=== PATIENT | male | born 1955 | race Caucasian/White ===

== ENCOUNTER 2018-01-17 07:09 | Day surgery (SDC) | payer OTHER ==
[~2018-01-17] VITALS: Ht 193 cm; Wt 108.9 kg
--- NOTE | ~2018-01-17 | OP ---
PATIENT NAME: ARLINE GOMEZ MEDICAL RECORD: [id number] :53 LOCATION:D.OPS ADMISSION DATE: SURGEON: SY CONNOR MD DATE OF OPERATION: 01/17/2018 PREOPERATIVE DIAGNOSIS: Suspicious facial lesions times 4. POSTOPERATIVE DIAGNOSIS: Suspicious facial lesions times 4. PROCEDURE: Electrodesiccation and curettage of suspicious facial lesions times 4. SURGEON: Sy Connor MD HIGH DENSITY PRESS LABORER: None. BLOOD LOSS: Minimal. ANESTHESIA: General. COMPLICATIONS: None. The risks, possible complications, and alternatives to the procedure were explained to the patient. This included the risk of regrowth of the skin lesions, possible need for wide excision in the future, possibility of infection and as the patient has been on Coumadin, the possibility of bleeding. OPERATIVE COURSE: The patient was conveyed to the operating room electively on 01/17/2018. General anesthesia was induced by anesthesia staff. The face was sterilely prepped and draped. Utilizing a curved razor blade, I was able to shave all 4 skin lesions. The right cheek skin lesion had what appeared to be some keratin debris deep within it, so that lesion may actually have been a sebaceous cyst. I then performed electrodesiccation and curettage of all the skin lesions. The right skin lesion was the deepest and required suture closure consisting of a single horizontal mattress 4-0 Vicryl Rapide. Dermabond was then applied to all the operative sites. The patient was then extubated and conveyed to post-anesthesia care unit where he was in stable condition. There is no need for him to follow up with me in the office unless he develops a complication related to this operative procedure. TRANSINT:[id number] Voice Confirmation ID: [id number] DOCUMENT ID: [id number] SY CONNOR MD at 1311 CC: [id number] DICTATION DATE: 01/17/18 1120 ALTERATION TAILOR APPRENTICE: 01/17/18 1317 [facility] 01/17/18 [place] [id number] [place] [id number]
[2018-01-17] MEDS ORDERED: PACERONE200 MG (07:40)
[2018-01-17] MEDS ORDERED: LANOXIN125 MCG PO (07:41)
[2018-01-17] MEDS ORDERED: CARTIA XT240 MG PO (07:42)
[2018-01-17] MEDS ORDERED: LASIX20 MG (07:42)
[2018-01-17] MEDS ORDERED: ZOCOR40 MG PO (07:43)
[2018-01-17] MEDS ORDERED: LEVOXYL100 MCG PO (07:43)
[2018-01-17] MEDS ORDERED: COUMADIN5 MG PO (07:44)
[2018-01-17 07:52] VITALS: BP 139/81; Ht 193 cm; Wt 108.9 kg
[2018-01-17 08:05] LABS: HEMATOCRIT 39.5 % (42.0-54.0); HEMOGLOBIN 12.9 g/dL (13.5-17.5); MCHC 32.7 g/dL (31.0-37.0); MCV 91.9 fL (80.0-100.0); MEAN PLATELET VOLUME 9.4 fL (7.4-10.4); RBC 4.3 10x6/uL (4.20-6.10); RDW 15.2 % (11.5-14.5); WBC 5.4 10x3/uL (4.8-10.8)
[2018-01-17 08:14] LABS: APTT 38.6 SECONDS (22.8-39.4); INR 2.19 (0.85-1.17); PROTIME 23.8 SECONDS (11.6-15.0)
[2018-01-17 08:28] LABS: CALC OSMOLALITY 286 mosm/kg (275-300); CALCIUM 8.8 mg/dL (8.5-10.1); CARBON DIOXIDE 29.1 mmol/L (21.0-32.0); CHLORIDE - SERUM 106 mmol/L (98-107); GLUCOSE 86 mg/dL (74-106); POTASSIUM - SERUM 3.7 mmol/L (3.5-5.1); SODIUM 144 mmol/L (136-145); UREA NITROGEN 14 mg/dL (7-18); eGFR NON AFRICAN AMERICAN 80 mL/min (90-120)
== END 2018-01-17 13:17 | disposition home or self-care (01) ==
LOC: D.OPS 07:09
PROVIDERS: Anesthesiology
DX: L98.9 Disorder of the skin and subcutaneous tissue, unspecified (principal); F17.200 Nicotine dependence, unspecified, uncomplicated; E03.9 Hypothyroidism, unspecified; Z01.812 Encounter for preprocedural laboratory examination

== ENCOUNTER 2018-12-05 15:01 | Inpatient (IN) | payer OTHER ==
[~2018-12-05] VITALS: Ht 193 cm; Wt 94.7 kg
--- NOTE | ~2018-12-05 | HEMODYNAMI ---
PATIENT:ARLINE GOMEZ MEDICAL RECORD: [id number] : 53 LOCATION:[facility] D.2126 ADMISSION DATE: 12/05/18 Generatedon:12/07/201815:48 Patient name: ARLINE GOMEZ Patient #: [id number] SSN: : 1955 Date of study: 12/07/2018 Page: Of Hemodynamic Procedure Report Patient Data Patient Demographics Procedure consent was obtained First Name: ARLINE Gender: Male Last Name: JASON : 1955 Middle Initial: E Age: 63 year(s) Patient #: [id number] Race: Unknown Additional ID: [id number] Contact details [address]: [address] [place] [address] State: [place] City: [place] Zip code: [address] Past Medical History Allergies Allergen Reaction Date Comments Reported Other allergy 12/07/2018 diltiazem Admission Admission Data Admission Date: 12/05/2018 Admission Time: 18:31 Admit Source: Other Room #: D2126 Procedure Procedure Types Cath Procedure Diagnostic Procedure LHC LHC w/Coronaries Procedure Description Procedure Date Procedure Date: 12/07/2018 Procedure Start Time: 15:37 Procedure End Time: 15:44 Procedure Staff Name Function Wili Abreu MD Performing Physician Mayank Cobian RT Monitor Jaiden Angeles RT Scrub Myrna Angela RN Nurse Procedure Data Cath Procedure Fluoroscopy Diagnostic fluoroscopy Total fluoroscopy Time: 0.9 time: 0.9 min min Diagnostic fluoroscopy Total fluoroscopy dose: dose: 169.92 mGy 169.92 mGy Contrast Material Contrast Material Type Amount (ml) Isovue 300 50 Entry Location Entry Primary Successful Side Size Upsize Upsize Entry Closure Succes sful Closure Location (Fr) 1 (Fr) 2 (Fr) Remarks Device Remarks Femoral Right 5 Fr Exoseal artery Estimated blood loss: 5 ml Diagnostic catheters Device Type Used For End Catheter Placement MULTIPACK JL 4.0 5Fr Procedure catheter MULTIPACK 3DRC 5Fr Procedure catheter MULTIPACK Pigtail 5 Fr Procedure catheter Procedure Complications No complications Procedure Medications Medication Administration Route Dosage Oxygen etCO2 Nasal cannula 2 l/min Lidocaine 2% added to field 20 Heparin Flush Bag added to field 2 bags (1000units/500ml NS) 0.9% NaCl I.V. 100 ml/hr Versed I.V. 2 mg Fentanyl I.V. 50 mcg Versed I.V. 2 mg Hemodynamics Rest Heart Rate: 71 (bpm) Pressure Samples Time Site Value (mmHg) Purpose Heart Use Rate(bpm) 15:41 LV 100/19,17 Snapshot 107 15:42 AO 120/60(89) Pullback 92 15:42 LV 99/16,19 Pullback 92 Gradients Valve Time Site 1 Site 2 Mean SEP/DFP Peak To Heart Use (mmHg) (sec/min) Peak Rate (mmHg) (bpm) Aortic 15:42 LV AO 0 92 99/16,19 120/60(89) Calculations Valve P-P Mean Valve Index Valve Source Name Gradient Area Flow (cm2) Aortic 0 0 Snapshots Pre Cath Intra NCS Post Cath Vital Signs Time Heart Resp SPO2 etCO2 NIBP (mmHg) Rhythm Pain Sedation Rate (ipm) (%) (mmHg) Status Level (bpm) 15:24:44 84 14 97 0 120/79(104) A-Fib 0 (11) 10(A) , No pain 15:28:54 58 15 96 0 114/85(102) A-Fib 0 (11) 10(A) , No pain 15:33:00 87 15 100 29.9 116/93(101) A-Fib 0 (11) 10(A) , No pain 15:37:55 71 14 100 0 107/85(99) A-Fib 0 (11) 10(A) , No pain 15:42:01 91 15 98 2.9 104/79(96) A-Fib 0 (11) 10(A) , No pain Medications Time Medication Route Dose Verified Delivered Reason Notes Eff ectiveness by by 15:31:26 Oxygen etCO2 2 Wili Norris used for Nasal l/min [facility] Angela scientific research associate cannula 15:31:32 Lidocaine 2% added 20ml Wili Rasheed for local to vial [facility] anesthetic field MD LIZ 15:31:38 Heparin Flush added 2 Wili Rasheed used for Bag to bags [facility] Abreu procedure (1000units/500ml field MD LIZ NS) 15:31:51 0.9% NaCl I.V. 100 Wili Norris used for ml/hr [facility] Angela RN procedure 15:37:08 Versed I.V. 2 mg Wili Liuie for [facility] Angela RN sedation 15:37:15 Fentanyl I.V. 50 Wili Liuie for mcg [facility] Angela RN sedation 15:41:59 Versed I.V. 2 [address] for [facility] Angela RN sedation Procedure Log Time Note 15:05:03 Informed consent obtained and on chart 15:05:07 Admit Source: Other 15:05:43 Diagnostic Cath status Elective 15:05:44 Jaiden Karthik RT(R) sent for patient. Start room use. 15:05:46 Time tracking: Regular hours (M-F 7:00 - 5:00) 15:05:49 Plan of Care:Hemodynamics will remain stable., Cardiac rhythm will remain stable., Comfort level will be maintained., Respiratory function will remain adequate., Patient/ family verbilizes understanding of procedure., Procedure tolerated without complication., Recovers from procedure without complications.. 15:07:47 H&P Date Dictated: 12/06/2018 Within 30 days and on chart.. 15:08:38 Patient allergic to Other allergydiltiazem 15:16:34 Patient received from Pre/Post Procedure Room to CCL 3 Alert and oriented. Tansferred to table in Supine position. 15:16:36 Warm blankets applied, and osmar hugger turned on for patient comfort. 15:16:36 Correct patient and procedure confirmed by team. 15:16:37 ECG and BP/O2 sat monitors applied to patient. 15:23:39 Vital chart was started 15:25:45 Baseline sample Acquired. 15:25:51 Rhythm: atrial fibrillation 15:25:52 Full Disclosure recording started 15:25:57 Pre-procedure instructions explained to patient. 15:25:57 Pre-op teaching completed and patient verbalized understanding. 15:26:03 Family unavailable. 15:26:10 Patient NPO since Breakfast. 15:26:17 Is the patient allergic to Iodine/contrast media? No. 15:27:33 Is patient on blood thinner?Yes 15:27:35 ACC The patient was administered the following blood thiners within the last 24 hours: ACCLovenox 15:31:26 Oxygen 2 l/min etCO2 Nasal cannula was administered by Myrna Angela RN; used for procedure; 15:31:32 Lidocaine 2% 20ml vial added to field was administered by Wili Abreu MD; for local anesthetic; 15:31:38 Heparin Flush Bag (1000units/500ml NS) 2 bags added to field was administered by Wili Abreu MD; used for procedure; 15:31:51 0.9% NaCl 100 ml/hr I.V. was administered by Myrna Angela RN; used for procedure; 15:34:49 Patient diabetic? No. 15:34:56 Previous problem with sedation/anesthesia? Unknown ? 15:35:03 Snore? Yes 15:35:04 Sleep apnea? No 15:35:06 Deviated septum? No 15:35:24 Opens mouth fully? Yes 15:35:25 Sticks out tongue? Yes 15:35:27 Airway obstruction? No ? 15:35:29 Dentures? No ? 15:35:31 Pre procedure: right dorsailis pedis pulse 1+ Palpable, but thready & weak; easily obliterated 15:35:35 Patient pain scale 0/10 ?. 15:35:40 IV patent on arrival in left forearm with 0.9% NaCl at [facility]. 15:35:43 Lab results completed and on chart. 15:35:46 Right groin area was prepped with chlora-prep and draped in sterile fashion 15:35:47 Alarms reviewed by R. N. 15:35:48 Sharps counted by scrub and verified by R.N. 15:35:49 Use device set Femoral Dx 15:35:50 ACIST Syringe (71878) opened to sterile field. 15:35:51 Bag Decanter (2002) opened to sterile field. 15:35:51 Medline Cath Pack ([id number]) opened to sterile field. 15:35:52 ACIST Hand Control (84271) opened to sterile field. 15:35:52 ACIST Manifold (44550) opened to sterile field. 15:35:53 Tegaderm 4 x 4 (1626W) opened to sterile field. 15:35:54 SHEATH 5FR Shattuck (IYL309) opened to sterile field. 15:35:55 DIAGNOSTIC WIRE .035 260cm J wire (205057) opened to sterile field. 15:35:56 DIAGNOSTIC Multipack 5Fr catheter set (CS5294) opened to sterile field. 15:36:00 Physician arrived 15:36:01 --------ALL STOP TIME OUT------ 15:36:01 Final Timeout: patient, procedure, and site verified with staff and physician. All members of the team are in agreement. 15:36:02 Right groin site verified by team. 15:36:05 Maximum allowable Isovue 300 dose 300ml. Physician notified. (300ml for normal creatinines. For patients with creatinine of 1.7 or higher multiply weight(kg) x 5 divided by creatinine.) 15:36:09 Fire Safety Assessment: A--An alcohol-based skin anteseptic being used preoperatively., C--Open oxygen or nitrous oxide is being used., D--An ESU, laser, or fiber-optic light is being used. 15:36:11 Physical assessment completed. ASA score P 2 - A patient with mild systemic disease as per Wili Abreu MD. 15:36:14 Sedation plan: IV Moderate Sedation Medication:Versed, Fentanyl 15:36:18 Zero performed for pressure channel P1 15:36:20 Zero performed for pressure channel P1 15:36:29 Zero performed for pressure channel P1 15:37:08 Versed 2 mg I.V. was administered by Myrna Angela RN; for sedation; 15:37:15 Fentanyl 50 mcg I.V. was administered by Myrna Angela RN; for sedation; 15:37:43 Procedure started. 15:37:46 Local anesthetic to right femoral artery with Lidocaine 2% by Wili Abreu MD.INITIAL ACCESS ONLY 15:37:53 A 5 Fr sheath was inserted into the Right Femoral artery 15:37:59 A MULTIPACK JL 4.0 5Fr catheter was advanced over the wire and used for Procedure. 15:38:43 LCA angiography performed. 15:39:30 Catheter exchanged over wire. 15:39:34 A MULTIPACK 3DRC 5Fr catheter was advanced over the wire and used for Procedure. 15:39:40 Timer 1 started at 3:34 PM, stopped at 3:39 PM, duration 00:04:47 sec. 15:40:16 RCA angiography performed. 15:40:24 Catheter exchanged over wire. 15:40:28 A MULTIPACK Pigtail 5 Fr catheter was advanced over the wire and used for Procedure. 15:40:40 EXOSEAL 5Fr (EX500) opened to sterile field. 15:41:37 LV gram done using ELLIS 15:41:39 Injector settings: Ml/sec: 10, Volume: 20, 15:41:41 LV hemodynamics recorded. 15:41:51 EF : 20 % 15:41:56 Catheter removed. 15:41:59 Versed 2 mg I.V. was administered by Myrna Angela RN; for sedation; 15:42:31 Sheath removed intact; hemostasis achieved with Exoseal to the Right Femoral artery. 15:42:32 Procedure ended.(Physican Out) 15:42:48 Fluoroscopy time 00.90 minutes. 15:42:55 Fluoroscopy dose: 169.92 mGy 15:42:55 Flurop Dose total: 169.92 15:42:58 Contrast amount:Isovue 300 50ml. 15:42:59 Sharps counted by scrub and verified by R.N. 15:43:02 Insertion/operative site no bleeding no hematoma. 15:43:05 Post-op/insertion site Right Femoral artery dressed using a 4 x 4 and Tegaderm. 15:43:08 Post right femoral artery:stable, soft, clean and dry 15:43:10 Post Procedure Pulses reassessed and unchanged 15:43:12 Post procedure rhythm: unchanged. 15:43:15 Estimated blood loss: 5 ml 15:43:16 Post procedure instruction explained to patient.Patient verbalizes understanding. 15:43:16 Patient needs reinforcement of post procedure teaching. 15:43:56 Procedure and supply charges have been captured, reviewed, submitted and are correct. 15:43:58 Procedure Complication : No complications 15:44:00 Vital chart was stopped 15:44:00 See physician's report for complete and final results. 15:44:02 Report given to PCU. 15:44:05 Patient transfered to PCU with Stretcher. 15:44:07 Procedure ended. 15:44:07 Full Disclosure recording stopped 15:44:09 End room use (Document Last) Device Usage Item Name Manufacture Quantity Catalog Hospital Part Current Minimal L ot# / Number Charge Number Stock Stock Serial# Code [place] [address] 07845 442579 222885 788970 20 Syringe Medical (77332) Systems Inc Bag Microtek 1 2001S 365078 82171 563109 5 Decanter Medical Inc. (2001S) Medline Medline 1 [id number] 227061 36388 773212 5 Cath Pack ([id number]) ACIST Hand Acist 1 87632 078523 640713 779177 5 Control Medical (25476) Systems Inc ACIST Acist 1 55443 436346 320611 813873 5 Manifold Medical (46784) Systems Inc Tegaderm 4 3M 1 1626W 850655 347845 902206 5 x 4 (1626W) SHEATH 5FR Terumo 1 [id number] 763825 807276 015126 5 Shattuck (CXR242) DIAGNOSTIC [facility] 1 934586 011615 281332 295338 30 WIRE .035 260cm J wire (384212) DIAGNOSTIC Cardinal 1 WB4551 366370 91853 476453 30 Multipack Health 5Fr catheter set (ML8354) MULTIPACK Cardinal 1 259793 5 JL 4.0 5Fr Health catheter MULTIPACK Cardinal 1 662065 5 3DRC 5Fr Health catheter MULTIPACK Cardinal 1 534502 5 Pigtail 5 Health Fr catheter EXOSEAL 5Fr Cardinal 1 EX500 660410 023244 586827 10 (EX500) Health Signature Audit Lutz Stage Time Signature Unsigned Intra-Procedure 12/07/2018 Mayank Cobian 3:48:15 PM RT(R) Signatures Monitor : Mayank Cobian RT Signature : Date : Time : [facility] [address] [place] [address]
[~2018-12-05 15:01] MED LIST: CARTIA XT240 MG PO; COUMADIN5 MG PO; LANOXIN125 MCG PO; LASIX20 MG PO; LEVOXYL100 MCG PO; PACERONE200 MG; ZOCOR40 MG PO
[2018-12-05 15:41] LABS: BASOPHILS 0.1 % (0-2); EOSINOPHILS 0.6 % (0-7); HEMATOCRIT 42.2 % (42.0-54.0); HEMOGLOBIN 13.9 g/dL (13.5-17.5); IMMATURE GRANULOCYTES 0.1 % (0-5); LYMPHOCYTES 9.7 % (15-50); MCH 30.2 pg (26.0-34.0); MCHC 32.9 g/dL (31.0-37.0); MCV 91.5 fL (80.0-100.0); MONOCYTES 5.9 % (2-11); NEUTROPHILS 83.6 % (40-80); PLATELET COUNT 216 10x3/uL (130-400); RBC 4.61 10x6/uL (4.20-6.10); RDW 15.2 % (11.5-14.5); WBC 7.9 10x3/uL (4.8-10.8)
[2018-12-05 15:58] LABS: ALBUMIN 2.7 g/dL (3.4-5.0); ALKALINE PHOSPHATASE 150 U/L (46-116); ALT (SGPT) 60 U/L (10-68); APTT 33.7 SECONDS (22.8-39.4); BILIRUBIN - TOTAL 2.54 mg/dL (0.2-1.3); CALC OSMOLALITY 281 mosm/kg (275-300); CALCIUM 7.7 mg/dL (8.5-10.1); CARBON DIOXIDE 20.2 mmol/L (21.0-32.0); CHLORIDE - SERUM 105 mmol/L (98-107); GLUCOSE 118 mg/dL (74-106); INR 1.54 (0.85-1.17); POTASSIUM - SERUM 3.7 mmol/L (3.5-5.1); PROTEIN - SERUM 6.5 g/dL (6.4-8.2); PROTIME 17.9 SECONDS (11.6-15.0); SODIUM 138 mmol/L (136-145); UREA NITROGEN 26 mg/dL (7-18); eGFR NON AFRICAN AMERICAN 80 mL/min (90-120)
[2018-12-05 16:09] LABS: CKMB 1.9 U/L (0.0-3.6); CREATINE KINASE 46 UL (21-232); MAGNESIUM - SERUM 2.2 mg/dL (1.8-2.4); TROPONIN-I 0.023 ng/mL (0.000-0.060)
--- NOTE | 2018-12-05 17:00 | NUR ---
PT GIVEN CARDIZEM ORDERED IVP, FOLLOWING ADMINISTRATION, RED PATCHES APPEARED ON THE LUE FROM THE LEFT HAND UP TO THE LEFT AC. PROVIDER Jany SIERRA AT THE BEDSIDE TO ASSESS PT. PT REPORTS BURNING SENSATION TO THE LUE. NURSE INSTRUCTED TO NOT ADMINISTER ORDERED CARDIZEM DRIP. EDP DR. KRAUS NOTIFIED. CARDIZEM ADDED TO PT'S ALLERGY LIST AT THIS TIME D/T REACTION. PRIOR TO ADMINISTRATION THIS NURSE VERIFIED THAT PT HAD NO KNOWN DRUG ALLERGIES.
[2018-12-05 17:04] VITALS: BP 110/71
--- NOTE | 2018-12-05 18:05 | NUR ---
SPOKE WITH BEATA IN PHARMACY TO REQUEST ORDERED MEDICATIONS, WILL ADMINISTER UPON ARRIVAL TO THE ED.
--- NOTE | 2018-12-05 18:47 | NUR ---
NOTIFIED BY LAB OF [facility] OF 1.82. DR. KRAUS NOTIFIED.
[2018-12-05 19:01] VITALS: BP 118/74
--- NOTE | 2018-12-05 19:04 | NUR ---
HAND-OFF REPORT GIVEN TO EUGENE SCHREIBER
[2018-12-05 20:00] VITALS: BP 111/56
--- NOTE | 2018-12-05 20:13 | NUR ---
REPROT GIVEN TO EUGENE WESLEY. PT GOING FOR VQ SCAN AT THIS TIME AND BEING TRANSFERED TO ROOM WHEN PROCEDURE IS COMPLETE. PT IN STABLE CONDITON AT THIS TIME
[2018-12-05 21:59] LABS: CKMB 3.3 U/L (0.0-3.6); CREATINE KINASE 121 UL (21-232); TROPONIN-I 0.018 ng/mL (0.000-0.060)
[2018-12-05 23:04] VITALS: BP 91/48; BMI 26.1
[2018-12-06 00:30] VITALS: BP 92/43
--- NOTE | 2018-12-06 02:24 | NUR ---
PLACED ON TELEMETRY PER ORDERS, CURRENTLY IN CONTROLLED AFIB IN THE 60S WITH SOME OCCASIONAL PVCS. PATIENT RESTING WITH BLANKET UP OVER HEAD, RESP EVEN AND UNLABORED. GUARD AT BEDSIDE, NO COMPLAINTS AT THIS TIME.
[2018-12-06 04:52] LABS: BASOPHILS 0 % (0-2); EOSINOPHILS 0 % (0-7); HEMATOCRIT 39.3 % (42.0-54.0); HEMOGLOBIN 12.6 g/dL (13.5-17.5); IMMATURE GRANULOCYTES 0.3 % (0-5); LYMPHOCYTES 6.5 % (15-50); MCH 29.6 pg (26.0-34.0); MCHC 32.1 g/dL (31.0-37.0); MCV 92.3 fL (80.0-100.0); MEAN PLATELET VOLUME 10.9 fL (7.4-10.4); MONOCYTES 0.8 % (2-11); NEUTROPHILS 92.4 % (40-80); PLATELET COUNT 194 10x3/uL (130-400); RBC 4.26 10x6/uL (4.20-6.10); RDW 14.6 % (11.5-14.5); WBC 6.6 10x3/uL (4.8-10.8)
[2018-12-06 05:30] VITALS: BP 106/45
[2018-12-06 05:36] LABS: ALBUMIN 2.3 g/dL (3.4-5.0); ALKALINE PHOSPHATASE 127 U/L (46-116); ALT (SGPT) 51 U/L (10-68); BILIRUBIN - TOTAL 2.16 mg/dL (0.2-1.3); CALC OSMOLALITY 285 mosm/kg (275-300); CALCIUM 7.8 mg/dL (8.5-10.1); CARBON DIOXIDE 23.9 mmol/L (21.0-32.0); CHLORIDE - SERUM 107 mmol/L (98-107); CKMB 1.2 U/L (0.0-3.6); CREATINE KINASE 33 UL (21-232); GLUCOSE 157 mg/dL (74-106); MAGNESIUM - SERUM 2.2 mg/dL (1.8-2.4); POTASSIUM - SERUM 4.1 mmol/L (3.5-5.1); PROTEIN - SERUM 5.8 g/dL (6.4-8.2); SODIUM 140 mmol/L (136-145); TROPONIN-I 0.024 ng/mL (0.000-0.060); UREA NITROGEN 24 mg/dL (7-18); eGFR NON AFRICAN AMERICAN 80 mL/min (90-120)
[2018-12-06 08:30] VITALS: BP 96/52
[2018-12-06] MEDS ORDERED: KEPPRA500 MG PO (10:43)
[2018-12-06] MEDS ORDERED: ELIQUIS5 MG PO (10:43)
[2018-12-06] MEDS ORDERED: BAYER CHEWABLE81 MG PO (10:44)
[2018-12-06] MEDS ORDERED: LISINOPRIL10 MG PO (10:44)
[2018-12-06] MEDS ORDERED: COLACE100 MG PO (10:45)
[2018-12-06 11:43] LABS: CKMB 0.8 U/L (0.0-3.6); CREATINE KINASE 28 UL (21-232); TROPONIN-I 0.017 ng/mL (0.000-0.060)
--- NOTE | 2018-12-06 11:45 | NUR ---
I have reviewed this patient and I concur with the Shift Assessment completed by the Licensed Practical Nurse today this shift.
[2018-12-06 11:46] VITALS: BP 94/57
[2018-12-06 13:30] VITALS: Ht 193 cm; Wt 94.7 kg
[2018-12-06 15:47] VITALS: BP 91/53
--- NOTE | 2018-12-06 18:12 | NUR ---
WITHOUT CHANGES OR DISTRESS NOTED AT THIS TIME. DENIES NEEDS.
--- NOTE | 2018-12-06 19:33 | NUR ---
PT RESTING IN BED. LAYING ON RIGHT SIDE. RIGHT SIDE MOSTLY FLACCID. PT HAS SCANT MOVEMENT. PT HAS SLURRED SPEECH FROM HISTORY OF CVA. GUARD AT BEDSIDE PT IS INMATE. PT IS AAO, WILL TURN SELF IN BED. NO S/S OF DISTRESS. BEDLOW AND CALL LIGHT IN REACH. NAME AND DATE PLACED ON BOARD. PT WILL CALL FOR ASSIST WHEN NEEDED. WILL CPOC
[2018-12-06 20:00] VITALS: BP 115/57
--- NOTE | 2018-12-06 21:43 | NUR ---
HEART CATH AND BLOOD CONSENTS SIGNED PT VERBALIZED UNDERSTANDING. DENIES ANY QUESTIONS OR NEEDS. VERBALLIZED UNDERSTANDING OF NPO AFTER MIDNIGHT. PT WILL CALL FOR ASSIST WHEN NEEDED. WILL CPOC
[2018-12-07] VITALS (12 sets, daily range): BP systolic 92–127; BP diastolic 54–91
[2018-12-07 05:44] LABS: BASOPHILS 0.1 % (0-2); EOSINOPHILS 0.1 % (0-7); HEMATOCRIT 39.6 % (42.0-54.0); HEMOGLOBIN 12.8 g/dL (13.5-17.5); IMMATURE GRANULOCYTES 0.1 % (0-5); LYMPHOCYTES 12.8 % (15-50); MCH 29.8 pg (26.0-34.0); MCHC 32.3 g/dL (31.0-37.0); MCV 92.1 fL (80.0-100.0); MEAN PLATELET VOLUME 10.5 fL (7.4-10.4); MONOCYTES 6.3 % (2-11); NEUTROPHILS 80.6 % (40-80); PLATELET COUNT 198 10x3/uL (130-400)
[2018-12-07 05:50] LABS: WBC 9.2 10x3/uL (4.8-10.8)
[2018-12-07 06:12] LABS: ALBUMIN 2.3 g/dL (3.4-5.0); ANION GAP 12.6 mmol/L (8-16); BILIRUBIN - TOTAL 1.55 mg/dL (0.2-1.3); CALCIUM 7.7 mg/dL (8.5-10.1); CREATININE - SERUM 1.1 mg/dL (0.6-1.3); MAGNESIUM - SERUM 2.2 mg/dL (1.8-2.4); POTASSIUM - SERUM 3.6 mmol/L (3.5-5.1); PROTEIN - SERUM 5.8 g/dL (6.4-8.2)
--- NOTE | 2018-12-07 06:16 | NUR ---
MORNING SYNTHROID GIVEN WITH SIPS OF WATER. PT HAS BEEN NPO SINCE MIDNIGHT. PT HAS NO S/S OF DISTRESS. WILL CPOC
--- NOTE | 2018-12-07 07:45 | NUR ---
PT SITTING UP IN BED. ALERT AND ORIENTED. GUARD AT BEDSIDE. STATED TO PT HIS HEART CATH IS GOING TO BE SOMETIME AFTER 1400. HE VERBALIZED UNDERSTANDING. PT HAS NO FURTHER NEEDS AT THIS TIME. BED LOW. CL IN REACH.
--- NOTE | 2018-12-07 09:49 | NUR ---
I have reviewed this patient and I concur with the Shift Assessment completed by the Licensed Practical Nurse today this shift.
--- NOTE | 2018-12-07 13:38 | EC ---
PATIENT:ARLINE GOMEZ DATE OF SERVICE: 12/05/18 SEX: M MEDICAL RECORD: [id number] DATE OF : 53 LOCATION:D.M2 D.212 AGE OF PATIENT: 63 ADMISSION DATE: 12/05/18 REFERRING PHYSICIAN: INTERPRETING PHYSICIAN: TEMO CRUZ MD ECHOCARDIOGRAM REPORT ECHO CHARGES 4 ECHO COMPLETE Date: 12/06/18 CLINICAL DIAGNOSIS: AFIB ECHOCARDIOGRAPHIC MEASUREMENTS (adult normal given) AC root (d.<3.7cm) 3.0 cm LV Septum d (<1.2 cm> 1.1 cm Valve Excursion 1.9 cm LV Septum (systole) 1.6 cm Left Atria (s.<4.0cm> 5.0 cm LVPW d(<1.2cm) 1.4 cm RV (d.<2.3cm) 2.9 cm LVPW (sytole) 1.9 cm LV diastole(<5.6CM) 5.9 cm MV E-F(>70mm/sec) cm LV systole 4.6 cm LVOT Diameter 2.2 cm MV exc.(>10mm) cm Est.ejection fraction (50-75%) % DOPPLER: LVIT cm/sec A 0 cm/sec E 112 cm/sec LA cm/sec RVSP 31.3 mmHg LVOT 102 cm/sec AOP1/2T m/s Asc. Ao 178 cm/sec RVOT 60 cm/sec RA cm/sec PA 93 cm/sec AV Gradient Peak 12.7 mmHg AV Mean 5.7 mmHg AV Area 2.0 cm MV Gradient Peak 7.2 mmHg MV Mean 3.4 mmHg MV Area cm COMMENTS: Sports Announcer: Gu[facility] Betting Clerk: 1 Dr. Villa TAPE# PACS Pericardial Effusion N DATE OF SERVICE: Adequate 2D, color flow, spectral Doppler, and M-mode. LVH is present. LV internal dimension is mildly dilated at 5.9 cm. LV is mildly globally hypokinetic with reduced EF. Estimated EF is lower limits of normal, mildly reduced. Estimated EF 40% to 45%. Aortic valve sclerosis without stenosis by Doppler interrogation. Left atrium is dilated at 5.0 cm. Mitral valve shows no prolapse. Nybm-rn-nnycelfc MR. Right-sided chambers are grossly normal. Mild TR. ECHOCARDIOGRAM REPORT [id number] ARLINE GOMEZ TRANSINT:[id number] Voice Confirmation ID: [id number] DOCUMENT ID: [id number] TEMO CRUZ MD at 1338 CC: [id number] DICTATION DATE: 12/06/18 1241 BACK TACKER: 12/07/18 0357 ADM IN [facility] [address] [place] [address]
--- NOTE | 2018-12-07 15:00 | NUR ---
JESSICA MONTERO'Amna FOR MELT DOWN FURNACE OPERATOR.
--- NOTE | 2018-12-07 15:12 | NUR ---
PT TAKEN FOR ROBOTICS MECHANIC VIA BED ACCOMPANIED BY GUARD.
--- NOTE | 2018-12-07 16:00 | NUR ---
SPOKE WITH MAKENNA FROM EXPANSION JOINT FINISHER SHE STATES LEFT HEART CATH BY DR. WARREN NO INTERVENTION FOR THE ARTERIES BUT PT DOES HAVE EJECTION FRACTION OF 15%-20%. SHE STATES SHE GAVE 4 OF VERSED AND 100 OF FENTANYL. 5 FAROESE EXOCIL TO THE RIGHT GROIN.
--- NOTE | 2018-12-07 16:05 | NUR ---
PT RETURNED FROM BANK CASHIER. EYES CLOSED. CHEST RISING AND FALLING. O2 AT 2L VIA NC. PP CHECKED. VS STABLE. RIGHT GROIN SOFT SHOWS NO S/S OF HEMATOMA DRESSING C/D/I. GUARD AT BEDSIDE. NS INFUSING THROUGH LEFT HAND IV. WILL CONTINUE TO MONITOR. BED LOW. CL IN REACH.
--- NOTE | 2018-12-07 17:12 | NUR ---
PT IS RUNNING 101 UNCONTROLLED AFIB.
[2018-12-07] MEDS ORDERED: COREG 3.1253.125 MG PO (17:16)
--- NOTE | 2018-12-07 19:26 | NUR ---
PT ASLEEP. AROUSES TO VERBAL STIMULI. PT IS AAO, RIGHT SIDE WEAKNESS/FACE DROP FROM HISTORY OF CVA. PT RIGHT GROIN DRSG CDI. NO BLEEDING OR HEMATOMA. GUARD AT BEDSIDE, PT IS AN INMATE. PLACED NAME AND DATE ON BOARD. BEDLOW AND CALL LIGHT IN REACH. WILL CPOC
[2018-12-08] VITALS: BP 98/58
--- NOTE | 2018-12-08 00:47 | NUR ---
PT IS ASLEEP. GUARD AT BEDSIDE. PT RESP EVEN AND UNLABORED. NO S/S OF DISTRESS. BEDLOW AND CALL LIGHT IN REACH. RIGHT GROIN DRSG CDI. PULSES +2 PT WILL CALL FOR ASSIST WHEN NEEDED. WILL CPOC
--- NOTE | 2018-12-08 02:16 | NUR ---
PT HAD A RUN OF 6 VTACH. PLACED STRIP INTO CHART. PT IS ASLEEP. AROUSES TO VERBAL STIMULI. DENIES ANY NEEDS. PT IS NOW 61 CAF.
[2018-12-08 04:00] VITALS: BP 99/60
[2018-12-08 05:48] LABS: BASOPHILS 0.1 % (0-2); EOSINOPHILS 0.9 % (0-7); HEMATOCRIT 44.9 % (42.0-54.0); HEMOGLOBIN 14.5 g/dL (13.5-17.5); IMMATURE GRANULOCYTES 0.1 % (0-5); LYMPHOCYTES 14.3 % (15-50); MCH 30.1 pg (26.0-34.0); MCHC 32.3 g/dL (31.0-37.0); MCV 93.3 fL (80.0-100.0); MEAN PLATELET VOLUME 10.8 fL (7.4-10.4); MONOCYTES 8.4 % (2-11); NEUTROPHILS 76.2 % (40-80); PLATELET COUNT 205 10x3/uL (130-400); RBC 4.81 10x6/uL (4.20-6.10); RDW 15.1 % (11.5-14.5); WBC 6.9 10x3/uL (4.8-10.8)
[2018-12-08 06:07] LABS: ALBUMIN 2.5 g/dL (3.4-5.0); ANION GAP 10.2 mmol/L (8-16); BILIRUBIN - TOTAL 2.02 mg/dL (0.2-1.3); CALCIUM 7.8 mg/dL (8.5-10.1); CARBON DIOXIDE 28.2 mmol/L (21.0-32.0); CREATININE - SERUM 1.1 mg/dL (0.6-1.3); MAGNESIUM - SERUM 2.3 mg/dL (1.8-2.4); POTASSIUM - SERUM 3.4 mmol/L (3.5-5.1); PROTEIN - SERUM 6.1 g/dL (6.4-8.2)
[2018-12-08 09:24] VITALS: BP 131/71
--- NOTE | 2018-12-08 09:31 | MORECARE ---
CASE MANAGEMENT DISCHARGE SUMMARY PATIENT: ARLINE GOMEZ E UNIT: [id number] ADM DATE: 12/05/18 AGE: 63 : 53 SEX: M ROOM/BED: D.2126 AUTHOR: MAGALY PEREZ PHYSICIAN: REFERRING PHYSICIAN: ISABELL KENDRICK MD DATE OF SERVICE: 12/08/18 Discharge Plan Patient Name: ARLINE [facility]Z [facility] 1955 Planned Disposition: Other Type of Facility Anticipated Discharge Date: 12/08/18 Discharge Date: Expected LOS: 3 Initial Reviewer: [email or web address] Initial Review Date: 12/05/2018 Generated: 12/08/18 10:31 am DCPIA - Discharge Planning Initial Assessment Updated by [email or web address]: Gale Galeas on 12/08/18 9:30 am * Is the patient Alert and Oriented? Yes * How many steps to enter\exit or inside your home? * PCP [facility] * [facility] * Preadmission Environment Other * Other Environment [facility] * ADLs Independent * Equipment None * Other Equipment [facility] ANY DME NEEDED * List name and contact numbers for known caregivers / representatives who currently or will assist patient after discharge: [place] [facility] * Verbal permission to speak to the caregivers and representatives has been obtained from the patient. N/A * Community resources currently utilized None * Additional services required to return to the preadmission environment? No * Can the patient safely return to the preadmission environment? Yes * Has this patient been hospitalized within the prior 30 days at any hospital? No Patient Name: ARLINE GOMEZ Page [id number] at 0931 All edits/amendments must be made on the electronic document DICTATION DATE: 12/08/18929 FOOD TRAY ASSEMBLER: TALYA 12/08/18929 RPT#: [id number] DC DATE: STATUS: ADM IN [facility] [address] [place] [address] END OF REPORT
--- NOTE | 2018-12-08 09:39 | MORECARE ---
CASE MANAGEMENT DISCHARGE SUMMARY PATIENT: ARLINE GOMEZ UNIT: [id number] ADM DATE: 12/05/18 AGE: 63 : 54 SEX: M ROOM/BED: D.2126 AUTHOR: MAGALY PEREZ PHYSICIAN: REFERRING PHYSICIAN: ISABELL KENDRICK MD DATE OF SERVICE: 12/08/18 Discharge Plan Patient Name: ARLINE GOMEZ Facility: [facility]:[place] : 1955 Planned Disposition: Other Type of Facility Anticipated Discharge Date: 12/08/18 Discharge Date: Expected LOS: 3 Initial Reviewer: [email or web address] Initial Review Date: 12/05/2018 Generated: 12/08/18 10:38 am Comments DCP- Discharge Planning Updated by [email or web address]: Gale Galeas on 12/08/18 8:[address] Patient Name: ARLINE GOMEZ Admission Status: ER Accout number: [id number] Admission Date: 12-05-2018 : 1955 Admission Diagnosis:UNSPECIFIED ATRIAL FIBRILLATION Attending: MIREILLE, Current LOS: 3 Anticipated DC Date: 12-08-2018 Planned Disposition: Other Type of Facility Primary Insurance: [place] DEPT OF CORRECTIONS Discharge Planning Comments: CM MET IN ROOM WITH PATIENT AND GUARDS AT BEDSIDE. THE PLAN IS FOR THE PATIENT TO RETURN TO THE [facility] AND THERE ARE NO ADDITIONAL NEEDS FOR DISCHARGE. AUSTIN IRWIN APN IS TO CALL DR DELACRUZ AND DO THE DOC TO DOC AND THEN HE WILL BE CLEARED TO LEAVE. THE GUARDS ARE TO ARRANGE TRANSPORT. Associate Professor Of Surgery: Gale Galeas RN DCPIA - Discharge Planning Initial Assessment Updated by [email or web address]: Gale Galeas on 12/08/18 9:30 am * Is the patient Alert and Oriented? Yes * How many steps to enter\exit or inside your home? * PCP [facility] MD * Pharmacy [facility] * Preadmission Environment Other * Other Environment [facility] * ADLs Independent * Equipment None * Other Equipment [facility] ANY DME NEEDED * List name and contact numbers for known caregivers / representatives who currently or will assist patient after discharge: [place] DEPARTMENT OF CORRECTIONS * Verbal permission to speak to the caregivers and representatives has been obtained from the patient. N/A * Community resources currently utilized None * Additional services required to return to the preadmission environment? No * Can the patient safely return to the preadmission environment? Yes * Has this patient been hospitalized within the prior 30 days at any hospital? No Last DP export: 12/08/18 8:31 am Patient Name: ARLINE GOMEZ Page [phone] at 0939 All edits/amendments must be made on the electronic document DICTATION DATE: 12/08/18937 CHOIR MEMBER: TALYA 12/08/18937 RPT#: [id number] DC DATE: STATUS: ADM IN [facility] [address] [place] [address] END OF REPORT
--- NOTE | 2018-12-08 13:14 | NUR ---
D/C INSTRUCTIONS GIVEN TO PT, [facility] [place]. IV REMOVED, PT TAKEN TO CAR VIA WHEELCHAIR.
--- NOTE | 2018-12-09 09:58 | OP ---
PATIENT NAME: ARLINE GOMEZ MEDICAL RECORD: [id number] :53 LOCATION:D.M2 D.2126 ADMISSION DATE:12/05/18 SURGEON: TEMO CRUZ MD DATE OF OPERATION: 12/07/2018 PROCEDURE: Left heart catheterization, selective coronary angiography, right femoral artery approach. CATHETERS: A 5-Finnish sheath, 5/4 left and right Karina, 5/4 pig. The procedure was well tolerated. The patient returned to trujillo, sheath removed. ExoSeal device placed. FINDINGS: Left ventriculography in 30-degree ELLIS view shows severe global hypokinesis with reduced EF, EF 15% to 20%, LVEDP 15 mmHg. CORONARY ANATOMY: LEFT MAIN: Left main is free of disease. LAD: Has luminal irregularities with no significant flow obstructive. CIRCUMFLEX: Again, luminal irregularities, no significant flow obstructive. RIGHT CORONARY ARTERY: Right dominant system. Right coronary shows no flow obstructive stenosis. IMPRESSION: Nonischemic cardiomyopathy, questionable tachy mediated, rates are better. We will continue Vest. We would need outpatient echo to see if left ventricle recovers with rates better controlled. If not, he would be a candidate for device therapy, although given acute islam would not benefit from left ventricular pacing. TRANSINT:[id number] Voice Confirmation ID: [id number] DOCUMENT ID: [id number] TEMO CRUZ MD at 0958 CC: [id number] DICTATION DATE: 12/07/18 1557 DRUM BARKER OPERATOR: 12/07/18 2245 DIS IN 12/08/18 [place] [id number] [place] [id number]
--- NOTE | 2018-12-11 09:40 | MORECARE ---
CASE MANAGEMENT DISCHARGE SUMMARY PATIENT: ARLINE GOMEZ UNIT: [id number] ADM DATE: 12/05/18 AGE: 63 : 54 SEX: M ROOM/BED: D.2126 AUTHOR: MAGALY PEREZ PHYSICIAN: REFERRING PHYSICIAN: ISABELL KENDRICK MD DATE OF SERVICE: 12/11/18 Discharge Plan Patient Name: ARLINE GOMEZ Facility: [facility]:[place] : 1955 Planned Disposition: Other Type of Facility Anticipated Discharge Date: 12/08/18 Discharge Date: 12/08/2018 Expected LOS: 3 Initial Reviewer: [email or web address] Initial Review Date: 12/05/2018 Generated: 12/11/18 10:40 am Comments DCP- Discharge Planning Updated by [email or web address]: Gale Galeas on 12/08/18 8:[address] Patient Name: ARLINE GOMEZ Admission Status: ER Accout number: [id number] Admission Date: 12-05-2018 : 1955 Admission Diagnosis:UNSPECIFIED ATRIAL FIBRILLATION Attending: MIREILLE, Current LOS: 3 Anticipated DC Date: 12-08-2018 Planned Disposition: Other Type of Facility Primary Insurance: [place] DEPT OF CORRECTIONS Discharge Planning Comments: CM MET IN ROOM WITH PATIENT AND GUARDS AT BEDSIDE. THE PLAN IS FOR THE PATIENT TO RETURN TO THE [facility] AND THERE ARE NO ADDITIONAL NEEDS FOR DISCHARGE. AUSTIN IRWIN APN IS TO CALL DR DELACRUZ AND DO THE DOC TO DOC AND THEN HE WILL BE CLEARED TO LEAVE. THE GUARDS ARE TO ARRANGE TRANSPORT. Jewel Waxer: Gale Galeas RN DCPIA - Discharge Planning Initial Assessment Updated by [email or web address]: Gale Galeas on 12/08/18 9:30 am * Is the patient Alert and Oriented? Yes * How many steps to enter\exit or inside your home? * PCP [facility] MD * [facility] * Preadmission Environment Other * Other Environment [facility] * ADLs Independent * Equipment None * Other Equipment [facility] ANY DME NEEDED * List name and contact numbers for known caregivers / representatives who currently or will assist patient after discharge: [place] DEPARTMENT OF CORRECTIONS * Verbal permission to speak to the caregivers and representatives has been obtained from the patient. N/A * Community resources currently utilized None * Additional services required to return to the preadmission environment? No * Can the patient safely return to the preadmission environment? Yes * Has this patient been hospitalized within the prior 30 days at any hospital? No Last DP export: 12/08/18 8:38 am Patient Name: ARLINE GOMEZ Page [id number] at 0940 All edits/amendments must be made on the electronic document DICTATION DATE: 12/11/18939 US MARKETING DIRECTOR: TALYA 12/11/18939 RPT#: [id number] DC DATE:12/08/18 STATUS: DIS IN [facility] [address] [place] [address] END OF REPORT
== END 2018-12-08 13:16 | DRG 287 ==
LOC: D.ER 15:01 → D.M2 18:31 → D.EDHOLD 18:31 → D.M2 18:57
PROVIDERS: Family Medicine; Internal Medicine Interventional Cardiology; ADMIT Family Medicine; ATTEND Family Medicine
PROC: B2151ZZ Fluoroscopy of Left Heart using Low Osmolar Contrast (ICD-10-PCS; 2018-12-07)
PROC: 4A023N7 Measurement of Cardiac Sampling and Pressure, Left Heart, Percutaneous Approach (ICD-10-PCS; 2018-12-07)
PROC: B2111ZZ Fluoroscopy of Multiple Coronary Arteries using Low Osmolar Contrast (ICD-10-PCS; principal; 2018-12-07 15:05)
DX: I48.91 Unspecified atrial fibrillation (principal); I69.951 Hemiplegia and hemiparesis following unspecified cerebrovascular disease affecting right dominant side; I11.0 Hypertensive heart disease with heart failure; Z79.01 Long term (current) use of anticoagulants; E03.9 Hypothyroidism, unspecified; G40.909 Epilepsy, unspecified, not intractable, without status epilepticus; I50.9 Heart failure, unspecified; E78.5 Hyperlipidemia, unspecified; I42.9 Cardiomyopathy, unspecified

== ENCOUNTER 2019-07-11 05:08 | Inpatient (IN) | payer MEDICAID ==
[~2019-07-11] VITALS: Ht 193 cm; Wt 91.2 kg
[2019-07-11] VITALS (56 sets, daily range): BP systolic 72–178; BP diastolic 42–125; Ht 193 cm; Wt 91.2 kg
[~2019-07-11 05:08] MED LIST changes: +BAYER CHEWABLE81 MG PO; +COLACE100 MG PO; +COREG 3.1253.125 MG PO; +ELIQUIS5 MG PO; +KEPPRA500 MG PO; +LISINOPRIL10 MG PO
[2019-07-11] MEDS ORDERED: MULTI-DAY VITAM1 TAB PO (05:10)
[2019-07-11] MEDS ORDERED: PACERONE200 MG PO (05:11)
[2019-07-11] MEDS ORDERED: OMEPRAZOLE40 MG PO (05:11)
[2019-07-11] MEDS ORDERED: METOPROLOL TART50 MG PO (05:12)
[2019-07-11] MEDS ORDERED: K-DUR20 MEQ PO (05:14)
[2019-07-11 06:24] LABS: INR 1.17 (0.85-1.17); PROTIME 14.4 SECONDS (11.6-15.0)
[2019-07-11 06:25] LABS: D-DIMER-QUANTITATIVE 0.91 ug/mLFEU (0.20-0.54)
[2019-07-11 06:32] LABS: CALC OSMOLALITY 285 mosm/kg (275-300); CALCIUM 8.5 mg/dL (8.5-10.1); CARBON DIOXIDE 25.5 mmol/L (21.0-32.0); CHLORIDE - SERUM 106 mmol/L (98-107); CREATININE - SERUM 0.9 mg/dL (0.6-1.3); POTASSIUM - SERUM 3.6 mmol/L (3.5-5.1); SODIUM 141 mmol/L (136-145); UREA NITROGEN 21 mg/dL (7-18); eGFR NON AFRICAN AMERICAN 90 mL/min (90-120)
[2019-07-11 06:34] LABS: BASOPHILS 0.1 % (0-2); EOSINOPHILS 0.1 % (0-7); GLUCOSE 137 mg/dL (74-106); HEMATOCRIT 38.2 % (42.0-54.0); HEMOGLOBIN 12.2 g/dL (13.5-17.5); IMMATURE GRANULOCYTES 0.6 % (0-5); LYMPHOCYTES 1.7 % (15-50); MCH 31.9 pg (26.0-34.0); MCHC 31.9 g/dL (31.0-37.0); MCV 99.7 fL (80.0-100.0); MEAN PLATELET VOLUME 9.7 fL (7.4-10.4); MONOCYTES 6.6 % (2-11); NEUTROPHILS 90.9 % (40-80); PLATELET COUNT 196 10x3/uL (130-400); RBC 3.83 10x6/uL (4.20-6.10); RDW 14.6 % (11.5-14.5); WBC 19.3 10x3/uL (4.8-10.8)
[2019-07-11 06:46] LABS: ALBUMIN 3.1 g/dL (3.4-5.0); ALKALINE PHOSPHATASE 83 U/L (46-116); ALT (SGPT) 25 U/L (10-68); CKMB 0.1 U/L (0.0-3.6); CREATINE KINASE 27 UL (21-232); PROTEIN - SERUM 6.7 g/dL (6.4-8.2); THYROID STIMULATING HORMONE 1.27 uIU/mL (0.36-3.74); TROPONIN-I < 0.017 ng/mL (0.000-0.060)
--- NOTE | 2019-07-11 06:50 | NUR ---
EDP DOWNEN NOTIFIED OF LACTIC ACID LEVEL OF 2.6. NO FURTHER ORDERS GIVEN AT THIS TIME
[2019-07-11 07:20] LABS: APPEARANCE CLEAR (CLEAR); BILIRUBIN NEGATIVE (NEGATIVE); COLOR YELLOW (YELLOW); GLUCOSE NEGATIVE (NEGATIVE); KETONE NEGATIVE (NEGATIVE); NITRITE NEGATIVE (NEGATIVE); PROTEIN NEGATIVE (NEGATIVE); SPECIFIC GRAVITY 1.015 (1.005-1.020); UROBILINOGEN NORMAL (NORMAL)
--- NOTE | 2019-07-11 07:42 | NUR ---
PT ARRIVED TO FLOOR FROM ER VIA STRETCHER. ASSESSMENT PERFORMED. VSS AND WNL. DENIES ANY NEEDS AT THIS TIME. WILL CONT TO FOLLOW POC. GEM AT BEDSIDE
--- NOTE | 2019-07-11 09:59 | NUR ---
PT RESTING IN BED, VSS AND WNL. GAURD AT BEDSIDE. WILL CONT TO FOLLOW POC
--- NOTE | 2019-07-11 10:07 | NUR ---
HERE IN ICU. PER , ORDER STAT ECHO AND GIVE 500ML. OBTAIN WOUND CULTURES FROM INTERNAL PACEMAKER REMOVAL WOUND
--- NOTE | 2019-07-11 11:45 | NUR ---
PT HR GOING FROM 125-140. NOTIFIED AND NEW ORDER RECIEVED TO START PT ON AN AMIODARONE GTT.
--- NOTE | 2019-07-11 12:30 | NUR ---
AMIODARONE GTT STARTED AT 1MG/MIN ORDERED. WILL CONT TO FOLLOW POC
--- NOTE | 2019-07-11 13:42 | NUR ---
PT SHIVERING AND PRN APAP ALREADY GIVEN FOR 100.2 TEMP. PT BP ELEVATED AND HR ELEVATED. NOTIFIED . NEW ORDER RECIEVED TO GIVE IBUPROFEN 400MG NOW
--- NOTE | 2019-07-11 13:52 | NUR ---
Open wound noted on right medial foot/great toe. It measures 1cm x 0.5cm x 0.1cm. Edema is noted in right foot and ankle. There is no odor from wound. Left upper chest has open area from pacemaker removal. Recommended for both areas: paint with betadine and cover with dry 4x4s. Wound care will monitor.
--- NOTE | 2019-07-11 14:30 | NUR ---
PT RESTING PEACEFULLY IN BED, GAURD AT BEDSIDE, DENIES ANY NEEDS AT THIS TIME, WILL CONT TO FOLLOW POC
--- NOTE | 2019-07-11 15:30 | NUR ---
PT RESTING IN BED, GAURD AT BEDSIDE, PT IS NO LONGER SHIVERING. PT IS STILL RUNNING A-FIB ON THE MONITOR AT THIS TIME, AMIODARONE INFUSING AT THIS TIME, CALL LIGHT WITHIN REACH. WILL CONT TO FOLLOW POC
--- NOTE | 2019-07-11 16:27 | NUR ---
PT BP 78/40. HR 130 A-FIB. NOTIFIED . NEW ORDER RECIEVED TO GIVE 500ML BOLUS
--- NOTE | 2019-07-11 16:34 | NUR ---
KATHY ASAVEDRA AT BEDSIDE, UPDATE GIVEN, NEW ORDERS RECIEVED,
--- NOTE | 2019-07-11 16:35 | NUR ---
PT BP STAYING 70 SYSTOLIC AND O2 SAT DROPPED INTO THE 70 ON 2L NC. NOTIFIED . NEW ORDER RECIEVED TO START PT ON SOCORRO GTT AND OBTAIN STAT ABG. INCREASE O2 TO 4L NC. WILL CONT TO FOLLOW POC
--- NOTE | 2019-07-11 17:05 | NUR ---
PT RESTING IN BED, BP NOW 92/48 WITH SOCORRO GTT AT 10MCG/HR. PT RESTING IN BED, GAURD AT BEDSIDE, WILL CONT TO FOLLOW POC
--- NOTE | 2019-07-11 17:29 | NUR ---
PT BP DROPPED TO 72/59. INCREASED SOCORRO GTT TO 30MCG/MIN ORDERED
--- NOTE | 2019-07-11 18:06 | NUR ---
PT RESTING IN BED, VSS AND WNL. GAURD AT BEDSIDE. DENIES ANY NEEDS AT THIS TIME. CALL LIGHT WITHIN REACH. WILL CONT TO FOLLOW POC
--- NOTE | 2019-07-11 18:30 | NUR ---
BP 74/53, INCREASED SOCORRO GTT TO 50MCG/MIN. DECREASED AMIODARONE GTT TO 0.5MG/HR ORDERED. WILL CONT TO FOLLOW POC
--- NOTE | 2019-07-11 19:00 | NUR ---
SHIFT ASSESSMENT COMPLETE. VITAL SIGNS STABLE. NO VISUAL CUES OF DISTRESS NOTED. WILL CONTINUE TO MONITOR.
--- NOTE | 2019-07-11 20:29 | NUR ---
DR. GILLESPIE NOTIFIED OF CONSULT, STATUS REPORT GIVEN AND NEW ORDERS REC'D..
--- NOTE | 2019-07-11 21:05 | MORECARE ---
CASE MANAGEMENT DISCHARGE SUMMARY PATIENT: ARLINE GOMEZ UNIT: [id number] ADM DATE: 07/11/19 AGE: 64 : 53 SEX: M ROOM/BED: D.2308 AUTHOR: MAGALY PEREZ PHYSICIAN: REFERRING PHYSICIAN: LAUREANO CHAVEZ MD DATE OF SERVICE: 07/11/19 Discharge Plan Patient Name: ARLINE GOMEZ Facility: [facility]:[place] : 1955 Planned Disposition: Court\Law Enforcement Anticipated Discharge Date: Discharge Date: Expected LOS: Initial Reviewer: [email or web address] Initial Review Date: 07/11/2019 Generated: 07/11/19 10:04 pm Comments DCP- Discharge Planning Updated by [email or web address]: Katy Kimball on 07/11/19 8:[address] Patient Name: ARLINE GOMEZ Admission Status: ER Accout number: [id number] Admission Date: 07-11-2019 : 1955 Admission Diagnosis: Attending: LAUREANO CHAVEZ Current LOS: 1 Anticipated DC Date: Planned Disposition: Court\Law Enforcement Primary Insurance: MEDICAID LONG TERM PENDING Discharge Planning Comments: PATIENT IS IN LONG TERM @ [facility] IN [place] AND WILL RETURN THERE UPON DISCHARGE. ORTHODONTIST AT BEDSIDE. CM WILL CONTINUE TO FOLLOW AND ASSIST NEEDED WITH DISCHARGE PLANNING / NEEDS Design Analyst: Katy Kimball DCPIA - Discharge Planning Initial Assessment Updated by [email or web address]: Katy Kimball on 07/11/19 9:00 pm * PCP [facility] * Pharmacy [facility] * Preadmission Environment Other Patient Name: ARLINE GOMEZ Page [id number] at 2105 All edits/amendments must be made on the electronic document DICTATION DATE: 07/11/192103 MAPPING SPECIALIST: TALYA 07/11/192103 RPT#: [id number] DC DATE: STATUS: ADM IN [address] [address] END OF REPORT
[2019-07-11 21:53] LABS: APPEARANCE CLEAR (CLEAR); BILIRUBIN NEGATIVE (NEGATIVE); COLOR YELLOW (YELLOW); GLUCOSE NEGATIVE (NEGATIVE); KETONE NEGATIVE (NEGATIVE); NITRITE NEGATIVE (NEGATIVE); PROTEIN NEGATIVE (NEGATIVE); UROBILINOGEN NORMAL (NORMAL)
[2019-07-12] VITALS (82 sets, daily range): BP systolic 92–140; BP diastolic 50–88
[2019-07-12 05:11] LABS: ALKALINE PHOSPHATASE 69 U/L (46-116); ALT (SGPT) 29 U/L (10-68); CALCIUM 7.6 mg/dL (8.5-10.1); CARBON DIOXIDE 23.8 mmol/L (21.0-32.0); CHLORIDE - SERUM 111 mmol/L (98-107); CKMB 0.5 U/L (0.0-3.6); CREATINE KINASE 46 UL (21-232); CREATININE - SERUM 0.8 mg/dL (0.6-1.3); PROTEIN - SERUM 5.1 g/dL (6.4-8.2); SODIUM 143 mmol/L (136-145); TROPONIN-I 0.045 ng/mL (0.000-0.060); eGFR NON AFRICAN AMERICAN > 90 mL/min (90-120)
[2019-07-12 05:13] LABS: CALC OSMOLALITY 284 mosm/kg (275-300); GLUCOSE 81 mg/dL (74-106); POTASSIUM - SERUM 3.9 mmol/L (3.5-5.1); UREA NITROGEN 14 mg/dL (7-18)
[2019-07-12 06:15] LABS: BASOPHILS 0.3 % (0-2); EOSINOPHILS 0.6 % (0-7); HEMATOCRIT 37.8 % (42.0-54.0); HEMOGLOBIN 12.1 g/dL (13.5-17.5); IMMATURE GRANULOCYTES 0.3 % (0-5); LYMPHOCYTES 3.7 % (15-50); MCH 31.8 pg (26.0-34.0); MCV 99.5 fL (80.0-100.0); MEAN PLATELET VOLUME 10.6 fL (7.4-10.4); MONOCYTES 5.1 % (2-11); PLATELET COUNT 63 10x3/uL (130-400); RDW 15.1 % (11.5-14.5); WBC 10.7 10x3/uL (4.8-10.8)
[2019-07-12 06:41] LABS: PLATELET ESTIMATE DECREASED
--- NOTE | 2019-07-12 07:00 | NUR ---
PT RESTING IN BED, SHIFT ASSESSMENT PERFORMED. GAURD AT BEDSIDE, CALL LIGHT WITHIN REACH. DENIES ANY NEEDS AT THIS TIME, WILL CONT TO FOLLOW POC
--- NOTE | 2019-07-12 07:39 | NUR ---
PIV TO LEFT WRIST INFILTRATED, REMOVED WITH CATHETER TIP INTACT. WILL CONT TO FOLLOW POC
--- NOTE | 2019-07-12 08:24 | NUR ---
PT BP STAYING IN THE 120S SYSTOLIC. DECREASED SOCORRO GTT TO 10MCG/MIN ORDERED. WILL CONT TO FOLLOW POC
--- NOTE | 2019-07-12 08:30 | NUR ---
DECREASED O2 TO 3L VIA NC. WILL CONT TO FOLLOW POC
--- NOTE | 2019-07-12 09:48 | NUR ---
SECOND IV LINE NEEDED. 2 NURSES TRIED AND FAILED ONCE EACH. PAGED NEDRA RN WITH VASCULAR ACCESS.
--- NOTE | 2019-07-12 10:30 | NUR ---
NEDRA WITH VASCULAR ACCESS HERE AND OBTAINED PIV TO PT RIGHT HAND. WILL CONT TO FOLLOW POC
--- NOTE | 2019-07-12 10:38 | NUR ---
ABDOUL WITH GIANNA HERE AND STATES PT NEEDS TO BE PLACED IN TEMPORARY CONTACT PRECAUTIONS UNTIL MRSA IS RULED OUT IN CHEST WOUND
--- NOTE | 2019-07-12 11:15 | NUR ---
PT RESTING IN BED, GAURD AT BEDSIDE, DENIES ANY NEEDS AT THIS TIME, VSS AND WNL. DENIES ANY NEEDS AT THIS TIME, WILL CONT TO FOLLOW POC
--- NOTE | 2019-07-12 12:25 | NUR ---
HERE AND TOLD NURSE TO D/C AMIODARONE GTT. WILL CONT TO FOLLOW POC
--- NOTE | 2019-07-12 12:25 | NUR ---
PT RESTING IN BED WATCHING TV. VSS AND WNL. GAURD AT BEDSIDE, DENIES ANY NEEDS AT THIS TIME. WILL CONT TO FOLLOW POC
--- NOTE | 2019-07-12 12:49 | CN ---
PATIENT NAME:ARLINE GOMEZ MEDICAL RECORD: [id number] : 53 LOCATION:[id number] ADMIT DATE: 07/11/19 ACCOUNT: [id number] CONSULTING PHYSICIAN: TRIPP GILLESPIE MD REFERRING PHYSICIAN: LAUREANO CHAVEZ MD DATE OF CONSULTATION: 07/12/2019 DIAGNOSES: 1. Chronic atrial fibrillation. 2. Sepsis. 3. Previous pacemaker removal secondary to infection. 4. Cardiomyopathy. HISTORY OF PRESENT ILLNESS: This is a gentleman from the assisted who is a relatively poor historian. Supposedly, he has a nonischemic cardiomyopathy, had a pacemaker, possibly an ICD that was recently removed as well as with the leads. This must have been due to infection. He now presents with sepsis syndrome. He had an echocardiogram done here. His ejection fraction was normal here. He had no evidence of vegetative endocarditis on the echo here. His atrial fibrillation is chronic. He was initially not given his digoxin, which he takes daily. His heart rate went fast; however, this was in light of hypotension and sepsis as well. He was given an extra dose of 0.5 mg IV digoxin and his heart rate is now in the 70s with controlled atrial fibrillation. PHYSICAL EXAMINATION: CONSTITUTIONAL/GENERAL APPEARANCE: Well nourished, well developed, appears stated age. EYES: Lids and conjunctivae noninjected. No discharge. No pallor. ENT: Lips within normal limit. No cyanosis. No pallor. NECK: Carotid arteries, bilateral normal upstroke. No bruits. No thrills. No jugular venous pressure or distention. CERVICAL LYMPH NODES: Nontender. Nonenlarged. THYROID: Not enlarged. No nodules. CARDIOVASCULAR: Irregularly irregular with atrial fibrillation. RESPIRATORY: Respiratory effort, unlabored. Normal curvature. No thoracic deformity. No chest wall tenderness. Percussion, resonant. Auscultation, clear. No wheezes, no rales, no rhonchi. ABDOMEN: Soft, nondistended, nontender. No abdominal pain, no vomiting and normal appetite. MUSCULOSKELETAL: No joint tenderness, normal gait, normal tone. SKIN: Warm and dry. OVERALL IMPRESSION: Atrial fibrillation, chronic, controlled on digoxin. No other cardiac workup or treatment is necessary at this time. TRANSINT:[id number] Voice Confirmation ID: [id number] DOCUMENT ID: [id number] CONSULT REPORT [id number] ARLINE GOMEZ, TRIPP LIZ at 1249 CC: [id number] DICTATION DATE: 07/12/19 1220 CHILD AND ADOLESCENT PSYCHOLOGIST: 07/12/19 1237 ADM IN [place] [id number] [place] [id number]
--- NOTE | 2019-07-12 12:49 | EC ---
PATIENT:ARLINE GOMEZ DATE OF SERVICE: 07/11/19 SEX: M MEDICAL RECORD: [id number] DATE OF : 53 LOCATION:[facility] D230 AGE OF PATIENT: 64 ADMISSION DATE: 07/11/19 REFERRING PHYSICIAN: INTERPRETING PHYSICIAN: TRIPP VILLA MD ECHOCARDIOGRAM REPORT ECHO CHARGES 4 ECHO COMPLETE Date: 07/11/19 CLINICAL DIAGNOSIS: SEPSIS, AFIB W/ RVR, R/O ENDOCARDITIS ECHOCARDIOGRAPHIC MEASUREMENTS (adult normal given) AC root (d.<3.7cm) 2.7 cm LV Septum d (<1.2 cm> 1.0 cm Valve Excursion 1.1 cm LV Septum (systole) 1.1 cm Left Atria (s.<4.0cm> 3.4 cm LVPW d(<1.2cm) 1.1 cm RV (d.<2.3cm) cm LVPW (sytole) 1.3 cm LV diastole(<5.6CM) 6.1 cm MV E-F(>70mm/sec) cm LV systole 5.4 cm LVOT Diameter 2.0 cm MV exc.(>10mm) cm Est.ejection fraction (50-75%) % DOPPLER: LVIT cm/sec A cm/sec E 143 cm/sec LA cm/sec RVSP 38.8 mmHg LVOT 123 cm/sec AOP1/2T m/s Asc. Ao 175 cm/sec RVOT cm/sec RA cm/sec PA cm/sec AV Gradient Peak 12.3 mmHg AV Mean 6.8 mmHg AV Area cm MV Gradient Peak 9.6 mmHg MV Mean 4.3 mmHg MV Area cm COMMENTS: Marketing Admin: Guillaume BLANKENSHIP Flight Deck Officer: 1 Dr. Villa TAPE# PACS Pericardial Effusion N DATE OF SERVICE: 07/11/2019 FINDINGS: 1. Left ventricular chamber size is mildly dilated. Left ventricular systolic function is preserved at 50% to 55%. 2. Left atrium is within normal limits. Right atrium and right ventricular chamber sizes are mildly dilated. 3. Valvular structures have normal structure and motion. 4. Doppler interrogation reveals mild mitral regurgitation, mild tricuspid regurgitation, no other valvular insufficiency or stenosis. Pulmonary systolic ECHOCARDIOGRAM REPORT [id number] ARLINE GOMEZ E pressure is normal estimated at 38 mmHg. 5. No evidence of pericardial effusion or left ventricular thrombus. 6. No evidence of vegetative endocarditis. TRANSINT:[id number] Voice Confirmation ID: [id number] DOCUMENT ID: [id number] TRIPP VILLA MD at 1249 CC: [id number] DICTATION DATE: 07/11/19 1513 MUSIC THERAPY SPECIALIST: 07/11/19 2205 ADM IN [place] [id number] [place] [id number]
--- NOTE | 2019-07-12 13:30 | NUR ---
PT RESTING IN BED, VSS AND WNL. GAURD AT BEDSIDE. DENIES ANY NEEDS AT THIS TIME, CALL LIGHT WITHIN REACH, BED ALARM ON. WILL CONT TO FOLLOW POC
--- NOTE | 2019-07-12 15:15 | NUR ---
PT ACCIDENTLY PULLED OUT PIV TO LEFT FA. CATHETER TIP INTACT. SPOKE WITH ABOUT DECREASING SOCORRO GTT. NEW ORDERS RECIEVED TO DECREASE SOCORRO GTT TO 5MCG/MIN. CHG BATH PROVIDED AND FULL LINEN CHANGE PROVIDED. LIFE VEST BATTERY IS . GEM NOTIFIED PRISION TO BRING MENTAL HEALTH PRACTITIONER AND EXTRA BATTERY FOR PT. DENIES ANY FURTHER NEEDS AT THIS TIME, WILL CONT TO FOLLOW POC
--- NOTE | 2019-07-12 16:40 | NUR ---
PT ACCIDENTLY PULLED OUT PIV TO LEFT FA. CATHETER TIP INTACT. SPOKE WITH ABOUT DECREASING SOCORRO GTT. NEW ORDERS RECIEVED TO DECREASE SOCORRO GTT TO 5MCG/MIN. CHG BATH PROVIDED AND FULL LINEN CHANGE PROVIDED. LIFE VEST BATTERY IS . GEM NOTIFIED PRISION TO BRING CRIPPLE CUTTER AND EXTRA BATTERY FOR PT. DENIES ANY FURTHER NEEDS AT THIS TIME, WILL CONT TO FOLLOW POC
--- NOTE | 2019-07-12 16:45 | NUR ---
PT SITTING UP IN BED EATING SUPPER, CALL LIGHT WITHIN REACH. DENIES ANY NEEDS AT THIS TIME, VSS AND WNL. WILL CONT TO FOLLOW POC
--- NOTE | 2019-07-12 17:35 | NUR ---
PT RESTING IN BED, WARM BLANKET PROVIDED, CALL LIGHT WITHIN REACH. BED ALARM ON. DENIES ANY NEEDS AT THIS TIME, WILL CONT TO FOLLOW POC
--- NOTE | 2019-07-12 18:16 | NUR ---
PT HR RUNNING BETWEEN 118-140S. PAGED
--- NOTE | 2019-07-12 18:25 | NUR ---
NEW ORDERS RECIEVED FROM TO GIVE 0.25 DIGOXIN NOW AND GIVE 0.25 DIGOXIN IN 2HRS.
[2019-07-13] VITALS (14 sets, daily range): BP systolic 98–130; BP diastolic 50–75
[2019-07-13 03:40] LABS: BASOPHILS 0.2 % (0-2); EOSINOPHILS 1.8 % (0-7); HEMATOCRIT 31.9 % (42.0-54.0); HEMOGLOBIN 10.2 g/dL (13.5-17.5); IMMATURE GRANULOCYTES 0.3 % (0-5); LYMPHOCYTES 9.2 % (15-50); MCH 31.9 pg (26.0-34.0); MCV 99.7 fL (80.0-100.0); MEAN PLATELET VOLUME 9.9 fL (7.4-10.4); MONOCYTES 7.4 % (2-11); NEUTROPHILS 81.1 % (40-80); PLATELET COUNT 55 10x3/uL (130-400); RDW 14.8 % (11.5-14.5)
[2019-07-13 03:45] LABS: WBC 6.2 10x3/uL (4.8-10.8)
[2019-07-13 03:57] LABS: CALC OSMOLALITY 283 mosm/kg (275-300); CALCIUM 7.7 mg/dL (8.5-10.1); CARBON DIOXIDE 26.4 mmol/L (21.0-32.0); CHLORIDE - SERUM 111 mmol/L (98-107); GLUCOSE 87 mg/dL (74-106); POTASSIUM - SERUM 3.5 mmol/L (3.5-5.1); SODIUM 142 mmol/L (136-145); UREA NITROGEN 17 mg/dL (7-18); eGFR NON AFRICAN AMERICAN 80 mL/min (90-120)
--- NOTE | 2019-07-13 07:20 | NUR ---
PT RESTING IN BED, SHIFT ASSESSMENT PERFORMED. DENIES ANY NEEDS AT THIS TIME, CALL LIGHT WITHIN REACH, WILL CONT TO FOLLOW POC
--- NOTE | 2019-07-13 08:29 | NUR ---
Nutrition follow-up: Diet: consistent cho PO intake 100% of last 3 meals Labs reviewed; glucose with good control +BM Wt: 200# RDN following.
--- NOTE | 2019-07-13 09:00 | NUR ---
PT RESTING IN BED, GAURD AT BEDSIDE, VSS AND WNL. DENIES ANY NEEDS AT THIS TIME, WILL CONT TO FOLLOW POC
--- NOTE | 2019-07-13 10:04 | NUR ---
NEDRA WITH VASCULAR ACCESS HERE AND INSERTED PIV TO RIGHT WRIST. PT TOLERATED WELL. WILL CONT TO FOLLOW POC
--- NOTE | 2019-07-13 12:00 | NUR ---
PT RESTING IN BED, VSS AND WNL. GAURD AT BEDSIDE. TRAY SET UP PROVIDED. URINAL EMPTIED. DENIES ANY NEEDS AT THIS TIME, WILL CONT TO FOLLOW POC
--- NOTE | 2019-07-13 13:31 | NUR ---
HERE AND STATES PT IS STABLE TO TRANSFER TO FLOOR. NOTIFIED PT. WILL CONT TO FOLLOW POC
--- NOTE | 2019-07-13 15:15 | NUR ---
REPORT GIVEN TO DEONTE MARTINEZ ON MED 2
--- NOTE | 2019-07-13 15:56 | NUR ---
RECEIVED PT FROM ICU VIA BED. PT IS AAO AND BEDFAST. PT CURRENTLY LYING SEMI FOWLERS. CALL LIGHT W/I REACH. GUARD AT BEDSIDE. RR EVEN AND UNLABORED ON RA. ZOSYN INFUSING @12.5ML/HR VIA R.WRIST PIV. NO S/S OF DISTRESS NOTED. PT ORIENTED TO ROOM. PT DENIES ANY NEEDS AT THIS TIME. WILL CTM.
--- NOTE | 2019-07-13 19:10 | NUR ---
PT CARE ASSUMED. RR EVEN AND UNLABORED. NO S/S OF DISTERSS NOTED. C/O PAIN AT RIGHT HAND PIV SITE. 22G STARTED TO LEFT FA X1 STICK. PT TOLERATED WILL. NO FURTHER VOICED C/O OR CONCERNS AT THIS TIME. GUARD AT BEDSIDE. CALL LIGHT IN REACH. WILL CTM.
[2019-07-14] VITALS: BP 123/53
[2019-07-14 04:30] VITALS: BP 134/70
[2019-07-14 05:20] LABS: BASOPHILS 0 % (0-2); EOSINOPHILS 1.5 % (0-7); HEMATOCRIT 30.6 % (42.0-54.0); HEMOGLOBIN 9.9 g/dL (13.5-17.5); IMMATURE GRANULOCYTES 0.2 % (0-5); LYMPHOCYTES 12.3 % (15-50); MCH 31.7 pg (26.0-34.0); MCHC 32.4 g/dL (31.0-37.0); MCV 98.1 fL (80.0-100.0); MEAN PLATELET VOLUME 9.9 fL (7.4-10.4); MONOCYTES 9.1 % (2-11); NEUTROPHILS 76.9 % (40-80); PLATELET COUNT 56 10x3/uL (130-400); RBC 3.12 10x6/uL (4.20-6.10); RDW 14.7 % (11.5-14.5); WBC 4.8 10x3/uL (4.8-10.8)
[2019-07-14 05:28] LABS: CALCIUM 7.9 mg/dL (8.5-10.1); CHLORIDE - SERUM 113 mmol/L (98-107); CREATININE - SERUM 0.8 mg/dL (0.6-1.3); GLUCOSE 85 mg/dL (74-106); SODIUM 144 mmol/L (136-145); eGFR NON AFRICAN AMERICAN > 90 mL/min (90-120)
[2019-07-14 05:29] LABS: CALC OSMOLALITY 284 mosm/kg (275-300); UREA NITROGEN 10 mg/dL (7-18)
[2019-07-14 05:45] LABS: PLATELET ESTIMATE DECREASED
--- NOTE | 2019-07-14 07:00 | NUR ---
RECEIVED REPORT. ASSUMED CARE OF PATIENT. CALL LIGHT WITHIN REACH. DENIES NEEDS. PATIENT WITH GAURD AT BEDSIDE. IV FLUIDS INFUSING ORDERED. NO DISTRESS. RIGHT SIDED WEAKNESS DUE TO OLD CVA, TONGUE MIDLINE. NO DISTRESS.
[2019-07-14 08:06] VITALS: BP 134/65
--- NOTE | 2019-07-14 08:18 | NUR ---
SPOKE WITH CHARGE NURSE, ER STAFF, AND APPELLATE LAW CLERK REGARDING VASCULAR ACCESS NURSE COMING IN TO PLACE A PICC LINE IN PATIENT THAT WAS ORDERED YESTERDAY AFTERNOON. PATIENT SHOULD DISCHARGE TODAY TO THE S[facility]IOR LIVING BUT NEEDS GROUP HOME ANTIBIOTICS, HENCE THE REASON FOR VASCULAR NURSE TO PLACE A PICC LINE YESTERDAY. NOBODY ABLE TO PROVIDE ANY INFORMATION TO WHY THE PICC WAS NOT PLACED NOR THAT THE VACULAR NURSES ARE COMING IN TODAY TO PLACE THIS LINE.
[2019-07-14 11:43] VITALS: BP 120/65
[2019-07-14] MEDS ORDERED: NAFCILLIN 2 GM/N2 G1 IV (12:11)
--- NOTE | 2019-07-14 12:21 | NUR ---
DISCHARGE ON HOLD AT THIS TIME UNTIL PICC LINE IS PLACED.
--- NOTE | 2019-07-14 12:38 | MORECARE ---
CASE MANAGEMENT DISCHARGE SUMMARY PATIENT: ARLINE GOMEZ UNIT: [id number] ADM DATE: 07/11/19 AGE: 64 : 53 SEX: M ROOM/BED: D.2110 AUTHOR: CHRISDOC PHYSICIAN: REFERRING PHYSICIAN: LAUREANO CHAVEZ MD DATE OF SERVICE: 07/14/19 Discharge Plan Patient Name: ARLINE GOMEZ Facility: [facility]:[place] : 1955 Planned Disposition: Court\Law Enforcement Anticipated Discharge Date: Discharge Date: Expected LOS: Initial Reviewer: [email or web address] Initial Review Date: 07/11/2019 Generated: 07/14/19 1:38 pm Comments DCP- Discharge Planning Updated by [email or web address]: Deepali Rosa on 07/14/19 11:[address] Patient Name: ARLINE GOMEZ Admission Status: ER Accout number: [id number] Admission Date: 07-11-2019 : 1955 Admission Diagnosis: Attending: LAUREANO CHAVEZ Current LOS: 3 Anticipated DC Date: Planned Disposition: Court\Law Enforcement Primary Insurance: MEDICAID RESIDENTIAL PENDING Discharge Planning Comments: CM FAXED DC SUMMARY TO JOHN PAUL AT [facility]. PATIENT IS FROM [facility]. CM TO FOLLOW AND ASSIST. Licensed Clinical Psychologist: Deepali Rosa DCP- Discharge Planning Updated by [id number]: Katy Kimball on 07/11/19 8:[address] Patient Name: ARLINE GOMEZ Admission Status: ER Accout number: [id number] Admission Date: 07-11-2019 : 1955 Admission Diagnosis: Attending: LAUREANO CHAVEZ Current LOS: 1 Anticipated DC Date: Planned Disposition: Court\Law Enforcement Primary Insurance: MEDICAID RESIDENTIAL PENDING Discharge Planning Comments: PATIENT IS IN RESIDENTIAL @ [facility] IN [place] AND WILL RETURN THERE UPON DISCHARGE. SECURITY OPERATIONS SPECIALIST AT BEDSIDE. CM WILL CONTINUE TO FOLLOW AND ASSIST NEEDED WITH DISCHARGE PLANNING / NEEDS Licensed Clinical Psychologist: Katy Kimball DCPIA - Discharge Planning Initial Assessment Updated by [email or web address]: Katy Kimball on 07/11/19 9:00 pm * PCP ADC * Pharmacy ADC * Preadmission Environment Other Last DP export: 07/11/19 8:05 p Patient Name: ARLINE GOMEZ Page [id number] at 1238 All edits/amendments must be made on the electronic document DICTATION DATE: 07/14/19 1238 JEWELRY SETTER: TALYA 07/14/19 1238 RPT#: [id number] DC DATE: STATUS: ADM IN [facility] [address] [place] [address] END OF REPORT
[2019-07-14 15:58] VITALS: BP 136/65
--- NOTE | 2019-07-14 17:43 | NUR ---
20 GAUGE IV PLACED TO LEFT UPPER ARM X 1 STICK, GOOD BLOOD RETURN, EASY FLUSH. TOLERATED IV PLACEMENT WELL. TAPE, DATED, AND SECURED. 22 GAUGE IV REMOVED FROM LEFT FOREARM. NO BLEEDING FROM SITE. CATHETER TIP INTACT. 2X2 GAUZE APPLIED AND SECURED WITH BANDAID.
[2019-07-14 20:00] VITALS: BP 148/58
[2019-07-15] VITALS (7 sets, daily range): BP systolic 116–154; BP diastolic 39–75
[2019-07-15 06:13] LABS: BASOPHILS 0.2 % (0-2); EOSINOPHILS 2.8 % (0-7); HEMATOCRIT 31.3 % (42.0-54.0); HEMOGLOBIN 10.2 g/dL (13.5-17.5); IMMATURE GRANULOCYTES 0.2 % (0-5); LYMPHOCYTES 14.3 % (15-50); MCH 31.8 pg (26.0-34.0); MCHC 32.6 g/dL (31.0-37.0); MCV 97.5 fL (80.0-100.0); MEAN PLATELET VOLUME 9.7 fL (7.4-10.4); MONOCYTES 10.9 % (2-11); NEUTROPHILS 71.6 % (40-80); RBC 3.21 10x6/uL (4.20-6.10); RDW 14.5 % (11.5-14.5); WBC 5.3 10x3/uL (4.8-10.8)
[2019-07-15 06:17] LABS: PLATELET COUNT 86 10x3/uL (130-400)
[2019-07-15 06:39] LABS: CALC OSMOLALITY 283 mosm/kg (275-300); CALCIUM 7.8 mg/dL (8.5-10.1); CARBON DIOXIDE 25.6 mmol/L (21.0-32.0); CHLORIDE - SERUM 111 mmol/L (98-107); CREATININE - SERUM 0.8 mg/dL (0.6-1.3); GLUCOSE 83 mg/dL (74-106); POTASSIUM - SERUM 3.6 mmol/L (3.5-5.1); SODIUM 144 mmol/L (136-145); UREA NITROGEN 7 mg/dL (7-18); eGFR NON AFRICAN AMERICAN > 90 mL/min (90-120)
--- NOTE | 2019-07-15 07:00 | NUR ---
RECEIVED REPORT. ASSUMED CARE OF PATIENT. RESTING IN BED WITH EYES OPEN. GAURD AT BEDSIDE. CALL LIGHT WITHIN REACH. NS INFUSING ORDERED TO LEFT UPPER ARM IV. PATIENT STATES HE SLEPT WELL LAST NOC. DENIES NEEDS. NO DISTRESS.
--- NOTE | 2019-07-15 11:30 | NUR ---
RESTING IN BED WITH EYES OPEN. FRESH ICE WATER PROVIDED. PATIENT DENIES NEEDS AT THIS TIME. IV FLUIDS INFUSING ORDERED. NO DISTRESS. GAURD AT BEDSIDE.
--- NOTE | 2019-07-15 14:30 | NUR ---
ASSISTED PATIENT ONTO BED ABDI FOR BM. NO DISTRESS. CALL LIGHT WITHIN REACH. PATIENT HAD LARGE BM.
--- NOTE | 2019-07-15 16:26 | NUR ---
RESTING IN BED. DENIES NEEDS. CALL LIGHT WITHIN REACH. GAURD AT BEDSIDE. NO DISTRESS.
--- NOTE | 2019-07-15 19:10 | NUR ---
PT CARE ASSUMED. PT RESTING IN BED WATCHING TV. RR EVEN AND UNLABORED ON RA. NO S/S OF DISTERSS NOTED AT THIS TIME. LIFE VEST ON. GUARD AT BEDSIDE. NO NEEDS EXPRESSED. SRX2, FALL PRECAUTIONS IN PLACE. WILL CPOC.
[2019-07-16 04:00] VITALS: BP 140/52
[2019-07-16 06:17] LABS: BASOPHILS 0.2 % (0-2); EOSINOPHILS 2.2 % (0-7); HEMOGLOBIN 10.7 g/dL (13.5-17.5); IMMATURE GRANULOCYTES 0.7 % (0-5); LYMPHOCYTES 13.2 % (15-50); MCH 31.8 pg (26.0-34.0); MCHC 32.4 g/dL (31.0-37.0); MCV 97.9 fL (80.0-100.0); MEAN PLATELET VOLUME 9.4 fL (7.4-10.4); MONOCYTES 10.3 % (2-11); NEUTROPHILS 73.4 % (40-80); PLATELET COUNT 103 10x3/uL (130-400); RBC 3.37 10x6/uL (4.20-6.10); RDW 14.3 % (11.5-14.5); WBC 5.9 10x3/uL (4.8-10.8)
[2019-07-16 06:32] LABS: CALC OSMOLALITY 283 mosm/kg (275-300); CALCIUM 8.1 mg/dL (8.5-10.1); CARBON DIOXIDE 25.9 mmol/L (21.0-32.0); CHLORIDE - SERUM 110 mmol/L (98-107); CREATININE - SERUM 0.8 mg/dL (0.6-1.3); GLUCOSE 94 mg/dL (74-106); POTASSIUM - SERUM 3.6 mmol/L (3.5-5.1); SODIUM 143 mmol/L (136-145); eGFR NON AFRICAN AMERICAN > 90 mL/min (90-120)
[2019-07-16 06:37] LABS: UREA NITROGEN 9 mg/dL (7-18)
--- NOTE | 2019-07-16 07:20 | NUR ---
PT RESTING IN BED, DENIES NEEDS. WCTM.
[2019-07-16 09:00] VITALS: BP 142/88
[2019-07-16 11:46] VITALS: BP 120/52
[2019-07-16 16:16] VITALS: BP 100/64
--- NOTE | 2019-07-16 19:30 | NUR ---
REPORT RECIEVED AND ROUNDING COMPLETE. PATIENT LAYING IN BED IN SEMI FOWLERS. PATIENT STATES HE IS JUST WAITING ON HIS RIDE. GEM IS IN ROOM AND STATES THEIR RIDE SHOULD BE HERE IN 20 MIN OR SO. PATIENT STATES NO NEEDS AT THIS TIME. CALL LIGHT WITHIN REACH AND BED IN LOWEST LOCKED POSITION.
--- NOTE | 2019-07-16 19:45 | NUR ---
PATIENT'S TRANSPORT HAS ARRIVED. REMOVED PATIENT'S LEFT UPPER ARM PIV, CATH INTACT, NO BLEEDING NOTED. GUARD HELPING PATIENT GET DRESSED AT THIS TIME. PATIENT IS BEING TAKEN DOWN BY 3 GUARDS AT THIS TIME.
--- NOTE | 2019-07-17 09:46 | MORECARE ---
CASE MANAGEMENT DISCHARGE SUMMARY PATIENT: ARLINE GOMEZ UNIT: [id number] ADM DATE: 07/11/19 AGE: 64 : 54 SEX: M ROOM/BED: D.2110 AUTHOR: MAGALY PEREZ PHYSICIAN: REFERRING PHYSICIAN: LAUREANO CHAVEZ MD DATE OF SERVICE: 07/17/19 Discharge Plan Patient Name: ARLINE GOMEZ Facility: [facility]:[place] : 1955 Planned Disposition: Court\Law Enforcement Anticipated Discharge Date: 07/16/19 Discharge Date: 07/16/2019 Expected LOS: 5 Initial Reviewer: [email or web address] Initial Review Date: 07/11/2019 Generated: 07/17/19 10:46 am Comments DCP- Discharge Planning Updated by [email or web address]: Deepali Rosa on 07/14/19 11:[address] Patient Name: ARLINE GOMEZ Admission Status: ER Accout number: [id number] Admission Date: 07-11-2019 : 1955 Admission Diagnosis: Attending: LAUREANO CHAVEZ Current LOS: 3 Anticipated DC Date: Planned Disposition: Court\Law Enforcement Primary Insurance: MEDICAID RETIREMENT PENDING Discharge Planning Comments: CM FAXED DC SUMMARY TO JOHN PAUL AT [facility]. PATIENT IS FROM [facility]. CM TO FOLLOW AND ASSIST. Asbestos Pipe Supervisor: Deepali Rosa DCP- Discharge Planning Updated by [id number]: Katy Kimball on 07/11/19 8:[address] Patient Name: ARLINE GOMEZ Admission Status: ER Accout number: [id number] Admission Date: 07-11-2019 : 1955 Admission Diagnosis: Attending: LAUREANO CHAVEZ Current LOS: 1 Anticipated DC Date: Planned Disposition: Court\Law Enforcement Primary Insurance: MEDICAID RETIREMENT PENDING Discharge Planning Comments: PATIENT IS IN [facility]IREMENT [facility] [place] AND WILL RETURN THERE UPON DISCHARGE. HIGH SCHOOL AGRICULTURE TEACHER AT BEDSIDE. CM WILL CONTINUE TO FOLLOW AND ASSIST NEEDED WITH DISCHARGE PLANNING / NEEDS Asbestos Pipe Supervisor: Katy Kimball DCPIA - Discharge Planning Initial Assessment Updated by [id number]: Katy Kimball on 07/11/19 9:00 pm * PCP ADC * Pharmacy ADC * Preadmission Environment Other Last DP export: 07/14/19 11:38 a Patient Name: ARLINE GOMEZ Page 81300 at 0946 All edits/amendments must be made on the electronic document DICTATION DATE: 07/17/19945 DECKER OPERATOR: TALYA 07/17/19945 RPT#: [id number] DC DATE:07/16/19 STATUS: DIS IN [facility] [address] [place] [address] END OF REPORT
== END 2019-07-16 20:06 | DRG 862 ==
LOC: D.ER 05:08 → D.ICU 06:51 → D.M2 07-13 15:43 → D.ICU 07-16 09:01 → D.M2 07-16 09:01
PROVIDERS: Family Medicine; ADMIT Internal Medicine Nephrology; ATTEND Internal Medicine Nephrology
PROC: 02HV33Z Insertion of Infusion Device into Superior Vena Cava, Percutaneous Approach (ICD-10-PCS; principal; 2019-07-16)
PROC: B548ZZA Ultrasonography of Superior Vena Cava, Guidance (ICD-10-PCS; 2019-07-16)
DX: T81.42XA Infection following a procedure, deep incisional surgical site, initial encounter (principal); A41.02 Sepsis due to Methicillin resistant Staphylococcus aureus; R65.21 Severe sepsis with septic shock; J96.01 Acute respiratory failure with hypoxia; G93.41 Metabolic encephalopathy; E43 Unspecified severe protein-calorie malnutrition; T82.7XXA Infection and inflammatory reaction due to other cardiac and vascular devices, implants and grafts, initial encounter; I50.22 Chronic systolic (congestive) heart failure; I42.9 Cardiomyopathy, unspecified; I69.351 Hemiplegia and hemiparesis following cerebral infarction affecting right dominant side; T81.44XA Sepsis following a procedure, initial encounter; I48.91 Unspecified atrial fibrillation; E03.9 Hypothyroidism, unspecified; Z68.24 Body mass index [BMI] 24.0-24.9, adult; I11.0 Hypertensive heart disease with heart failure

== ENCOUNTER → 2020-01-16 07:36 | Outpatient (CLI) | payer OTHER ==
[2019-07-11 13:59] VITALS: BMI 24.4
[~2020-01-16 07:36] MED LIST changes: +K-DUR20 MEQ PO; +METOPROLOL TART50 MG PO; +MULTI-DAY VITAM1 TAB PO; +NAFCILLIN 2 GM/N2 G1 IV; +OMEPRAZOLE40 MG PO; +PACERONE200 MG PO
== END | disposition home or self-care (01) ==
LOC: D.CT 01-14 09:00
PROVIDERS: ATTEND Surgery
DX: I70.203 Unspecified atherosclerosis of native arteries of extremities, bilateral legs (principal); T81.89XA Other complications of procedures, not elsewhere classified, initial encounter

== ENCOUNTER 2020-03-03 06:39 | Outpatient (CLI) | payer OTHER ==
--- NOTE | 2020-02-28 16:26 | HP ---
PATIENT: ARLINE GOMEZ MEDICAL RECORD: [id number] ACCOUNT: [id number] LOCATION:[place] : 53 ADMISSION DATE: 03/03/20 PCP: ANDREW OCASIO MD HISTORY AND PHYSICAL EXAMINATION CHIEF COMPLAINT: Nonhealing wound, right lower extremity. HISTORY OF PRESENT ILLNESS: The patient has a critical limb ischemia with nonhealing wound of the right foot. He has undergone a right foot amputation in the past due to osteomyelitis. The patient has venous insufficiency as well as arterial insufficiency. He underwent a CT in [facility]. It revealed bilateral arterial occlusive disease. The CTA revealed findings consistent with an open wound at the site of the previous right first toe amputation with changes in the distal first metatarsal, which may be related to previous surgery or osteomyelitis. With regards to the arterial disease, there was diminished caliber of the right popliteal artery below the knee with focal occlusion of the peroneal tibial trunk and single vessel runoff provided by the anterior tibial artery. He is admitted to undergo endovascular revascularization by the interventional radiology team. PAST MEDICAL AND SURGICAL HISTORY: Atrial fibrillation, CVA with hemiparesis, chronic stasis dermatitis of the lower extremities, history of osteomyelitis, history of right first toe amputation, nonhealing wound of the right foot, hyperlipidemia, hypothyroidism on replacement therapy, hypertension, and gastroesophageal reflux disease. HOME MEDICINES: Present in the last list of medicines I have includes amiodarone, atorvastatin, Bactrim-DS, calcium, vitamin D3, digoxin, furosemide, Levetiracetam, levothyroxine, metoprolol, omeprazole, potassium chloride, vitamins, therapeutic Tar shampoo, as well as Xarelto. I did not know how long the patient has been on Xarelto if he has been off all. ALLERGIES: No known drug allergies. PHYSICAL EXAMINATION: GENERAL: The patient appears chronically ill. He does not appear acutely ill. VITAL SIGNS: Reviewed. EARS: External ears appear normal. EYES: Extraocular movements are intact. NECK: Trachea midline. CHEST: No intercostal retractions. PULMONARY: Nonlabored and no stridor. IMPRESSION: Right lower extremity arterial occlusive disease in a patient with critical limb ischemia (nonhealing wound of the right foot). PLAN: Aortogram arteriograms, endovascular revascularization of the right lower extremity to include perhaps, but not limited to balloon angioplasty stenting and/or atherectomy. The risks, possible complications, and alternatives to the procedure were explained to the patient. He elects to proceed. TRANSINT:[id number] Voice Confirmation ID: [id number] DOCUMENT ID: [id number] HISTORY AND PHYSICAL [id number] ARLINE GOMEZ ROBERT MD at 1626 CC: ANDREW OCASIO MD [id number] DICTATION DATE: 02/27/201655 REGIONAL VICE PRESIDENT LIFE SALES: 02/27/20 2043 [place] [id number] [place] [id number]
[~2020-03-03] VITALS: Ht 193 cm; Wt 96.6 kg
--- NOTE | ~2020-03-03 | HEMODYNAMI ---
PATIENT:ARLINE GOMEZ MEDICAL RECORD: [id number] : 53 LOCATION:[facility] ADMISSION DATE: 03/03/20 Generatedon:03/03/202010:57 Patient name: ARLINE GOMEZ Patient #: [id number] SSN: : 1955 Date of study: 03/03/2020 Page: Of Hemodynamic Procedure Report Patient Data Patient Demographics Procedure consent was obtained First Name: ARLINE Gender: Male Last Name: JASON : 1955 [facility] Initial: E Age: 64 year(s) Patient #: [id number] Race: Unknown Additional ID: [id number] Contact details Address: [address] [place] [address] State: [place] City: [place] Zip code: [address] Past Medical History Allergies Allergen Reaction Date Comments Reported Other allergy 12/07/2018 diltiazem Admission Admission Data Admission Date: 03/03/2020 Admission Time: 6:39 Procedure Procedure Types Cath Procedure Peripheral Cath Diagnostic Procedure Abd/Extremity Extremities Procedure Description Procedure Date Procedure Date: 03/03/2020 Procedure Start Time: 8:50 Procedure Staff Name Function Burke Ramirez MD Performing Physician Juan Bo RT Monitor [address] RT Scrub Franklin DANIELS RN Nurse Shantal Resendez RN Nurse Procedure Data Cath Procedure Fluoroscopy Diagnostic fluoroscopy Total fluoroscopy Time: time: 27.7 min 27.7 min Diagnostic fluoroscopy Total fluoroscopy dose: 390 dose: 390 mGy mGy Contrast Material Contrast Material Type Amount (ml) Isovue 300 150 Procedure Medications Medication Administration Route Dosage Heparin Flush Bag added to field 2 bags (1000units/500ml NS) Heparin Flush Bag added to field 1 bags (1000units/500ml NS) Lidocaine 1% added to field 20 Versed I.V. 1 mg Fentanyl I.V. 50 mcg Versed I.V. 0.5 mg Fentanyl I.V. 25 mcg Heparin Bolus I.V. 5000 units Versed I.V. 0.5 mg Fentanyl I.V. 25 mcg Versed I.V. 0.5 mg Fentanyl I.V. 25 mcg Heparin Bolus I.V. 2000 units Nitroglycerin IC/IA I.A. 300 mcg Nitroglycerin IC/IA I.A. 200 mcg Versed I.V. 0.5 mg Fentanyl I.V. 25 mcg Hemodynamics Rest Heart Rate: 51 (bpm) Snapshots Pre Cath Intra NCS Post Cath Vital Signs Time Heart Resp SPO2 etCO2 NIBP (mmHg) Rhythm Pain Sedation Rate (ipm) (%) (mmHg) Status Level (bpm) 8:33:48 52 11 100 0 151/78(114) NSR 0 (11) 9(A) , No pain 8:37:58 36 10 100 0 150/104(113) NSR 0 (11) 9(A) , No pain 8:42:57 43 16 100 40.4 Measuring NSR 0 (11) 9(A) , No pain 8:43:26 47 12 39.6 142/72(114) NSR 0 (11) 9(A) , No pain 8:47:38 47 12 38.9 148/80(110) NSR 0 (11) 9(A) , No pain 8:52:37 39 13 100 37.4 Measuring NSR 0 (11) 9(A) , No pain 8:53:04 39 10 100 36.7 137/84(109) NSR 0 (11) 9(A) , No pain 8:57:22 48 12 100 38.9 95/54(76) NSR 0 (11) 9(A) , No pain 9:02:15 47 10 100 38.1 109/52(96) NSR 0 (11) 9(A) , No pain 9:07:10 52 12 100 41.1 120/99(111) NSR 0 (11) 9(A) , No pain 9:12:09 37 9 100 39.7 Measuring NSR 0 (11) 9(A) , No pain 9:12:11 42 9 100 39.7 128/56(96) NSR 0 (11) 9(A) , No pain 9:17:10 47 9 100 40.4 Measuring NSR 0 (11) 9(A) , No pain 9:17:28 42 8 100 44.2 132/65(115) NSR 0 (11) 9(A) , No pain 9:21:34 46 10 100 38.9 119/88(103) NSR 0 (11) 9(A) , No pain 9:25:46 51 7 100 44.9 96/54(74) NSR 0 (11) 9(A) , No pain 9:29:49 40 11 100 37.4 98/54(91) NSR 0 (11) 9(A) , No pain 9:34:49 37 0 100 38.9 133/62(110) NSR 0 (11) 9(A) , No pain 9:39:03 44 9 100 40.4 126/65(109) NSR 0 (11) 9(A) , No pain 9:44:02 40 7 100 37.4 Measuring NSR 0 (11) 9(A) , No pain 9:44:08 41 7 100 18.7 127/89(102) NSR 0 (11) 9(A) , No pain 9:49:07 49 12 100 40.4 Measuring NSR 0 (11) 9(A) , No pain 9:49:33 47 12 100 41.2 110/54(86) NSR 0 (11) 9(A) , No pain 9:53:39 42 8 100 41.9 123/62(104) NSR 0 (11) 9(A) , No pain 9:57:51 42 9 100 44.9 128/63(113) NSR 0 (11) 9(A) , No pain 10:02:01 42 7 100 40.4 132/68(105) NSR 0 (11) 9(A) , No pain 10:06:15 42 13 100 17.2 131/66(115) NSR 0 (11) 9(A) , No pain 10:10:25 42 8 100 40.4 135/71(112) NSR 0 (11) 9(A) , No pain 10:14:41 43 11 100 2.2 109/62(93) NSR 0 (11) 9(A) , No pain 10:18:47 45 16 100 15.7 105/60(79) NSR 0 (11) 9(A) , No pain 10:22:57 40 11 100 45.7 102/49(92) NSR 0 (11) 9(A) , No pain 10:27:56 45 9 100 44.9 Measuring NSR 0 (11) 9(A) , No pain 10:28:06 40 9 100 44.9 109/49(75) NSR 0 (11) 9(A) , No pain 10:32:12 43 9 100 41.9 120/58(104) NSR 0 (11) 9(A) , No pain 10:36:26 42 11 100 26.9 131/51(104) NSR 0 (11) 9(A) , No pain 10:40:29 40 16 100 23.9 120/90(102) NSR 0 (11) 9(A) , No pain 10:44:33 37 12 100 12.7 121/80(99) NSR 0 (11) 9(A) , No pain 10:48:33 38 7 100 124/91(105) NSR 0 (11) 9(A) , No pain 10:52:45 41 8 100 138/61(114) NSR 0 (11) 9(A) , No pain Medications Time Medication Route Dose Verified Delivered Reason Notes Effectiveness by by 8:40:59 Heparin Flush added 2 Burke Minner used for Bag to bags Burda, JEREMIAH procedure (1000units/500ml field MD KNIGHT NS) 8:41:02 Heparin Flush added 1 Burke Minner used for Bag to bags Burda, JEREMIAH procedure (1000units/500ml field LIZ RN NS) 8:41:12 Lidocaine 1% added 20ml Burke Minner used for to vial Burda, JEREMIAH procedure field MD KNIGHT 8:50:27 Versed I.V. 1 mg Burke Minner for sedation JEREMIAH Ramirez MD RN 8:50:39 Fentanyl I.V. 50 Burke Minner for sedation mcg JEREMIAH Ramirez MD RN 9:13:50 Versed I.V. 0.5 Burke Minner for sedation mg JEREMIAH Ramirez MD, RN 9:13:58 Fentanyl I.V. 25 Burke Minner for sedation mcg JEREMIAH Ramirez MD, RN 9:15:57 Heparin Bolus I.V. 5000 Burke Crookr for units JEREMIAH Ramirez MD, RN 9:39:28 Versed I.V. 0.5 Burke Minner for sedation JEREMIAH Humphrey MD, RN 9:39:33 Fentanyl I.V. 25 Burke Reid for sedation mcg JEREMIAH Ramirez MD RN 10:11:29 Versed I.V. 0.5 Burke Reid for sedation mg JEREMIAH Ramirez MD RN 10:11:34 Fentanyl I.V. 25 Burke Reid for sedation mcg JEREMIAH Ramirez MD, RN 10:12:19 Heparin Bolus I.V. 2000 Burke Reid for units JEREMIAH Ramirez anticoagulation RN 10:14:01 Nitroglycerin I.A. 300 Burke Turk for IC/IA mcg Ashley Ramirez MD vasodilation 10:21:49 Nitroglycerin I.A. 200 Burke Turk for IC/IA mcg Ashley Ramirez MD vasodilation MD 10:31:20 Versed I.V. 0.5 Burke Murguia for sedation mg Mal Ramirez RN, MD 10:31:30 Fentanyl I.V. 25 Burke Murguia for sedation Mal Thorpe RN, MD Procedure Log Time Note 8:16:15 Franklin DANIELS RN sent for patient. Start room use. 8:16:24 Time tracking: Regular hours (M-F 7:00 - 5:00) 8:16:33 Use device set IR Diagnostic 8:16:34 ACIST Syringe (28140) opened to sterile field. 8:16:34 ACIST Hand Control (02126) opened to sterile field. 8:16:35 ACIST Manifold (59121) opened to sterile field. 8:16:35 Bag Decanter (2002S) opened to sterile field. 8:16:35 Sterile Angiographic Pack opened to sterile field. 8:16:36 Tegaderm 4 x 4 (1626W) opened to sterile field. 8:16:48 Patient received from Outpatients to IR Alert and oriented. Tansferred to table in Supine position. 8:16:51 Signed procedure consent form obtained from patient. 8:16:53 Correct patient and procedure confirmed by team. 8:16:54 Full Disclosure recording started 8:16:57 - 8:17:02 H&P Date Dictated: 03/03/2020 H&P Addendum completed by physician on day of procedure. (MUST COMPLETE FOR ALL OUTPATIENTS). 8:17:03 Pre-procedure instructions explained to patient. 8:17:04 Pre-op teaching completed and patient verbalized understanding. 8:24:34 Family unavailable. 8::52 Is patient on blood thinner?No 8:25:14 Patient diabetic? No. 8:25:19 - 8:25:20 ----Pre-sedation anethsthesia assessment.---- 8:25:23 Previous problem with sedation/anesthesia? No ? 8:25:24 Snore? No 8:25:26 Sleep apnea? No 8:25:27 Deviated septum? Yes 8:25:28 Opens mouth fully? Yes 8:25:30 Sticks out tongue? No 8:25:32 Airway obstruction? No ? 8:25:36 - 8:25:37 Dentures? No ? 8:25:42 Pre procedure: right dorsailis pedis pulse Doppler 8:25:45 Pre procedure: left dorsailis pedis pulse Doppler 8:25:48 Pre procedure: right posterior tibial pulse Doppler 8:25:52 Pre procedure: left posterior tibial pulse Doppler 8:32:34 Correct patient and procedure confirmed by team. 8:32:35 ECG and BP/O2 sat monitors applied to patient. 8:32:36 Vital chart was started 8:32:39 Baseline sample Acquired. 8:32:56 IV patent on arrival in right forearm with 0.45%NaCl at KVO. 8:32:57 Alarms reviewed by R. N. 8:32:58 Sharps counted by scrub and verified by R.N. 8:33:09 Left groin area was prepped with betadine and draped in sterile fashion 8:33:29 2) 60-89 Mildly reduced kidney function, and other findings (as for stage 1) point to kidney disease. 8:33:53 Maximum allowable contrast dose (3.7 X eGFR X 0.75)197.025 ml. 8:40:59 Heparin Flush Bag (1000units/500ml NS) 2 bags added to field was administered by Franklin DANIELS RN; used for procedure; Verbal order read back and verified. 8:41:02 Heparin Flush Bag (1000units/500ml NS) 1 bags added to field was administered by Franklin DANIELS RN; used for procedure; Verbal order read back and verified. 8:41:12 Lidocaine 1% 20ml vial added to field was administered by Franklin Stewart RN; used for procedure; Verbal order read back and verified. 8:46:41 --------ALL STOP TIME OUT------ 8:46:41 Final Timeout: patient, procedure, and site verified with staff and physician. All members of the team are in agreement. 8:46:44 Left groin site verified by team. 8:46:49 Fire Safety Assessment: A--An alcohol-based skin anteseptic being used preoperatively., C--Open oxygen or nitrous oxide is being used. 8:46:54 Sedation plan: IV Moderate Sedation Medication:Versed, Fentanyl 8:50:02 Procedure started. 8:50:07 Local anesthetic to left femerol artery with Lidocaine 1% by Burke Ramirez MD.INITIAL ACCESS ONLY 8:50:16 SHEATH 5FR [place] (SQN568) opened to sterile field. 8:50:16 Micropuncture VSI 4FR kit opened to sterile field. 8:50:17 TUBING Contrast Injection High Pressure (UPG222F) opened to sterile field. 8:50:17 DOC .035 wire (K62561) opened to sterile field. 8:50:17 GLIDE WIRE ANGLE 260cm (LP3342) opened to sterile field. 8:50:18 Angiodynamics Omniflush 5Fr 65cm (98963446) opened to sterile field. 8:50:18 GLIDE WIRE ANGLE 260cm (JH9247) opened to sterile field. 8:50:27 Versed 1 mg I.V. was administered by Franklin DANIELS RN; for sedation; Verbal order read back and verified. 8:50:27 GRAMAJO 260 wire (W21204) opened to sterile field. 8:50:39 Fentanyl 50 mcg I.V. was administered by Franklin DANIELS RN; for sedation; Verbal order read back and verified. 8:59:29 TORQUE DEVICE PLASTIC .038 ( TD01) opened to sterile field. 9:08:36 CHOICE PT Extra Support J 300cm guide wire ([id number]) opened to steril e field. 9:11:01 SHEATH 6FR Destination (RSR01) opened to sterile field. 9:11:20 CXI SUPPORT .035 135 CM STR catheter (W26849) opened to sterile field. 9:12:10 INFLATOR BasixTOUCH (RI7289) opened to sterile field. 9:13:32 Cook RAABE 6FR. 90cm guide sheath opened to sterile field. 9:13:50 Versed 0.5 mg I.V. was administered by Franklin DANIELS RN; for sedation; Verbal order read back and verified. 9:13:52 SHEATH 6FR [place] (BKY184) opened to sterile field. 9:13:58 Fentanyl 25 mcg I.V. was administered by Franklin DANIELS RN; for sedation; Verbal order read back and verified. 9:15:57 Heparin Bolus 5000 units I.V. was administered by Franklin DANIELS RN; fo r anticoagulation; Verbal order read back and verified. 9:26:27 Inflate balloon Inflation number: 1 A CHOCOLATE 3.0 x 40 x 150 balloon ([id number]) was prepped and advanced across the Undefined1 , then inflated to 14 ARIANE for 2:03 (min:sec) . 9:32:47 Inflate balloon Inflation number: 2 A CHOCOLATE 3.5 x 40 x 135 balloon ([id number]) was prepped and advanced across the Undefined1 , then inflated to 14 ARIANE for 1:58 (min:sec) . 9:37:07 CHOICE PT Extra Support J 300cm guide wire ([id number]) opened to steril e field. 9:39:28 Versed 0.5 mg I.V. was administered by Franklin DANIELS RN; for sedation; Verbal order read back and verified. 9:39:33 Fentanyl 25 mcg I.V. was administered by Franlkin DANIELS RN; for sedation; Verbal order read back and verified. 9:41:48 [place] 1 Small Atherectomy catheter (H1S) opened to sterile field. 9:42:45 Inflate balloon Inflation number: 3 A [place] 2 X 120 X 150 ([id number]) was prepped and advanced across the Undefined1 , then inflated to 8 ARIANE for 0:07 (min:sec) . 9:50:30 Inflate balloon Inflation number: 4 A [place] 3.0-2.5X210 ([id number]) was prepped and advanced across the Undefined1 , then inflated to 8 ARIANE for 0:16 (min:sec) . 9:58:27 CXI SUPPORT .018 150CM STR catheter (Y70243) opened to sterile field. 10:05:19 GUIDEWIRE V-18 CONTROL ([id number]) opened to sterile field. 10:11:29 Versed 0.5 mg I.V. was administered by Franklin DANIELS RN; for sedation; Verbal order read back and verified. 10:11:34 Fentanyl 25 mcg I.V. was administered by Franklin DANIELS RN; for sedation; Verbal order read back and verified. 10:12:19 Heparin Bolus 2000 units I.V. was administered by Franklin DANIELS RN; fo r anticoagulation; Verbal order read back and verified. 10:14:01 Nitroglycerin IC/IA 300 mcg I.A. was administered by Burke Ramirez MD; fo r vasodilation; Verbal order read back and verified. 10:14:29 Inflate balloon Inflation number: 5 A [place] 2 MM-1.5 MM X 210 X 150 ([id number]) was prepped and advanced across the Undefined1 , then inflated to 0 ARIANE for 0:00 (min:sec) . 10:21:49 Nitroglycerin IC/IA 200 mcg I.A. was administered by Burke Ramirez MD; fo r vasodilation; Verbal order read back and verified. 10:30:22 Inflate balloon Inflation number: 6 A [place] 2MM X 80 X 150 ([id number]) was prepped and advanced across the Undefined1 , then inflated to 8 ARIANE for 0:05 (min:sec) . 10:31:20 Versed 0.5 mg I.V. was administered by Shantal Resendez RN; for sedation; Verbal order read back and verified. 10:31:30 Fentanyl 25 mcg I.V. was administered by Shantal Resendez RN; for sedation ; Verbal order read back and verified. 10:33:04 CHOICE PT Extra Support J 300cm guide wire ([id number]) opened to steril e field. 10:36:12 Inflate balloon Inflation number: 7 A [place] 2.5MM-2 MM X 210 X 150 ([id number]) was prepped and advanced across the Undefined1 , then inflated to 8 ARIANE for 0:08 (min:sec) . 10:40:24 Inflate balloon Inflation number: 8 A [place] 3 X 150 ([id number]) was prepped and advanced across the Undefined1 , then inflated to 8 ARIANE for 0:04 (min:sec) . 10:49:43 ANGIOSEAL-VIP PLUS 6 FR opened to sterile field. 10:50:17 Procedure ended.(Physican Out) 10:50:30 Fluoroscopy time 27.70 minutes. 10:50:43 Fluoroscopy dose: 390 mGy 10:50:43 Flurop Dose total: 390 10:53:13 Contrast amount:Isovue 300 150ml. 10:53:20 Sharps counted by scrub and verified by R.N. 10:53:22 Insertion/operative site no bleeding no hematoma. 10:53:26 Post-op/insertion site Left Femoral artery dressed using a 4 x 4 and Tegaderm. 10:53:49 Post left femerol artery:stable 10:53:51 Post Procedure Pulses reassessed and unchanged 10:53:54 Post procedure instruction explained to patient.Patient verbalizes understanding. 10:53:55 Procedure and supply charges have been captured, reviewed, submitted an d are correct. 10:55:37 Report given to Outpatients. 10:55:42 Patient transfered to Outpatients with Stretcher. 10:57:22 Vital chart was stopped Intervention Summary Intervention Notes Time ActionType Lesion and Equipment Used Action# Pressure Duration Attributes 9:26:27 Inflate Undefined1 CHOCOLATE 3.0 x 1 14 02:03 balloon 40 x 150 balloon ([id number]) 9:32:47 Inflate Undefined1 CHOCOLATE 3.5 x 2 14 01:58 balloon 40 x 135 balloon ([id number]) 9:42:45 Inflate Undefined1 [place] 2 3 8 00:07 balloon X 120 X 150 ([id number]) 9:50:30 Inflate Undefined1 [place] 4 8 00:16 balloon 3.0-2.5X210 ([id number]) 10:14:29 Inflate Undefined1 [place] 5 0 00:00 balloon 2.5MM-2 MM X 210 X 150 ([id number]) 10:30:22 Inflate Undefined1 [place] 6 8 00:05 balloon 2MM X 80 X 150 ([id number]) 10:36:12 Inflate Undefined1 [place] 7 8 00:08 balloon 2.5MM-2 MM X 210 X 150 ([id number]) 10:40:24 Inflate Undefined1 [place] 3 8 8 00:04 balloon X 150 ([id number]) Device Usage Item Name Manufacture Quantity Catalog Number Hospital Part Curr ent Minimal Lot# / Charge Number Stock Stock Serial# Code ACIST Syringe Acist Medical 1 95292 178899 602587 9147 64 20 (68808) Systems Inc ACIST Hand Acist Medical 1 72058 346297 650080 6841 96 5 Control (64256) Systems Inc ACIST Manifold Acist Medical 1 17229 596480 697087 5740 12 5 (01302) Systems Inc Bag Decanter Microtek 1 2001S 244593 99013 9842 16 5 () Medical Inc. Sterile Cardinal 1 [id number] 825122 1608 30 5 Angiographic Pack Health Tegaderm 4 x 4 3M 1 1626W 899461 615575 2426 85 5 (1626W) SHEATH 5FR Terumo 1 SVH899 337223 369232 4906 42 5 [place] (GAA627) Micropuncture VSI VSI VASCULAR 1 7266V 673344 5372 63 5 4FR kit SOLUTIONS TUBING Contrast [facility] Medical 1 [id number] 833425 166411 9649 16 5 Injection High Pressure (EXP626O) DOC .035 wire Cook Medical 1 X42650 726390 1510 54 5 (N63459) GLIDE WIRE ANGLE Terumo 2 LA8821 745275 378554 2796 75 5 260cm (TR3989) Angiodynamics Angiodynamics 1 04780428 407725 990349 2880 86 5 Omniflush 5Fr 65cm (53126093) GRAMAJO 260 wire GeoPage Medical 1 P63604 221844 33137 9994 23 5 (R54401) TORQUE DEVICE [place] 1 TD01 609645 170586 0002 86 5 PLASTIC .038 ( Scientific TD01) CHOICE PT Extra [place] 3 [id number] 495033 731735 5453 89 5 [id number] Support J 300cm Scientific [id number] guide wire [id number] ([id number]) SHEATH 6FR Terumo 1 RSR01 703322 96580 9994 92 5 Destination (RSR01) CXI SUPPORT .035 [employer](BHI) 1 X42632 278330 816163 6671 64 5 135 CM STR catheter (U93949) INFLATOR [facility] 1 SU0332 679270 043815 2634 14 5 BasixTOUCH (IV4324) Cook RAABE 6FR. [employer] 1 T53858 045023 8759 34 5 90cm guide sheath SHEATH 6FR Terumo 1 FCW281 460718 247104 7146 54 40 [place] (SRG629) CHOCOLATE 3.0 x Medtronic 1 [id number] 712839 700891 4156 89 5 40 x 150 balloon O ([id number]) TW CHOCOLATE 3.5 x Medtronic 1 [id number] 676417 423649 4520 97 5 40 x 135 balloon O ([id number]) TW [place] 1 Small Medtronic 1 H1-S 510927 7756767 0979 58 5 [id number] Atherectomy catheter (H1S) [place] 2 Medtronic 1 [id number] 367373 909998 1385 93 1 X 120 X 150 ([id number]) [place] Medtronic 1 [id number] 480099 2919 96 1 3.0-2.5X210 ([id number]) CXI SUPPORT .018 Cook Medical 1 D74793 186766 771861 9663 58 5 150CM STR catheter (P50990) GUIDEWIRE V-18 [place] 1 385432 321194 7550 98 1 [id number] CONTROL Scientific ([id number]) [place] Medtronic 2 [id number] 670197 6331 89 1 2.5MM-2 MM X 210 X 150 ([id number]) [place] Medtronic 1 [id number] 700919 4234 84 1 2MM X 80 X 150 ([id number]) [place] 3 Medtronic 1 [id number] 643672 52306 9999 96 1 X 150 ([id number]) [facility]AL[facility] 1 764236 783709 604165 2071 28 5 [id number] PLUS 6 FR Signature Audit [place] Stage Time Signature Unsigned Intra-Procedure 03/03/2020 Juan 10:57:16 AM Anupam RT (R) (CV) [facility] [address] [place] [place] [address]
[2020-03-03] MEDS ORDERED: CITRACAL + D E1 EACH PO (07:16)
[2020-03-03] MEDS ORDERED: VANCOMYCIN 1 GM/1 G1 IV (07:16)
[2020-03-03] MEDS ORDERED: LIPITOR20 MG PO (07:17)
[2020-03-03] MEDS ORDERED: XARELTO20 MG PO (07:18)
[2020-03-03 07:21] VITALS: Ht 193 cm; Wt 96.6 kg
[2020-03-03 08:23] LABS: ANION GAP 5.1 mmol/L (8-16); CALCIUM 8.7 mg/dL (8.5-10.1); CARBON DIOXIDE 36.3 mmol/L (21.0-32.0); CREATININE - SERUM 1.1 mg/dL (0.6-1.3); POTASSIUM - SERUM 4.4 mmol/L (3.5-5.1)
[2020-03-03 08:26] LABS: APTT 31.1 SECONDS (22.8-39.4); INR 1.18 (0.85-1.17); PROTIME 14.9 SECONDS (11.6-15.0)
[2020-03-03 08:28] LABS: BASOPHILS 0.5 % (0-2); EOSINOPHILS 1.2 % (0-7); HEMATOCRIT 39.6 % (42.0-54.0); HEMOGLOBIN 12.6 g/dL (13.5-17.5); IMMATURE GRANULOCYTES 1.1 % (0-5); LYMPHOCYTES 14.4 % (15-50); MCH 31.7 pg (26.0-34.0); MCHC 31.8 g/dL (31.0-37.0); MCV 99.7 fL (80.0-100.0); MEAN PLATELET VOLUME 9.8 fL (7.4-10.4); NEUTROPHILS 72.8 % (40-80); RBC 3.97 10x6/uL (4.20-6.10); RDW 14.3 % (11.5-14.5); WBC 6.5 10x3/uL (4.8-10.8)
[2020-03-03 08:34] LABS: PLATELET COUNT 215 10x3/uL (130-400)
--- NOTE | 2020-03-03 12:30 | NUR ---
CALL PLACED TO [facility] "DAY CLINIC" THAT WILL BE CARING FOR PATIENT UPON DISCHARGE AND THIS NURSE SPOKE WITH "DR OCASIO" AND GAVE REPORT REGARDING PROCEDURE THAT WAS DONE AND INSTRUCTIONS THAT XARELTO IS TO BE RESTARTED TONIGHT IF NO SIGNS OF BLEEDING AND PLAVIX 75 MG DAILY TO BE STARTED TONIGHT. DR OCASIO STATES UNDERSTANDING AND REPEATS MEDICATION INSTRUCTIONS
[2020-03-03] MEDS ORDERED: PLAVIX75 MG PO (12:51)
--- NOTE | 2020-03-03 13:10 | NUR ---
LEFT GROIN DRESSING C/D/I, PEDAL PULSES POSITIVE BY DOPPLER. PATIENT DRESSING IN ADC CLOTHING. LEFT ARM PICC LINE FLUSHED AND CAPPED.
--- NOTE | 2020-03-03 19:50 | HP ---
PATIENT: ARLINE GOMEZ MEDICAL RECORD: [id number] ACCOUNT: [id number] LOCATION:[place] : 53 ADMISSION DATE: 03/03/20 PCP: ANDREW OCASIO MD HISTORY AND PHYSICAL EXAMINATION CHIEF COMPLAINT: Nonhealing wound. The patient has a nonhealing wound of the right lower extremity. He has undergone a CTA AFRO at [facility]. The patient was found to have multifocal occlusive peripheral vascular disease. He is here for aortogram and endovascular interventions to the right lower extremity. These may include but was not limited to balloon angioplasty, atherectomy, or stenting. TRANSINT:[id number] Voice Confirmation ID: [id number] DOCUMENT ID: [id number] RIMMA CONNOR MD at 1950 CC: ANDREW OCASIO MD [id number] DICTATION DATE: 03/03/20 0744 FUDGER: 03/03/20 1005 DEP CLI 03/03/20 [facility] [address] [place] [address]
== END 2020-03-03 13:10 | disposition home or self-care (01) ==
LOC: D.SP 06:39
PROVIDERS: General Practice; ATTEND Surgery
DX: I70.201 Unspecified atherosclerosis of native arteries of extremities, right leg (principal); T81.89XA Other complications of procedures, not elsewhere classified, initial encounter